=== PATIENT | male | born 2000 | race Caucasian/White ===

== ENCOUNTER 2023-09-24 16:16 | Emergency (ER) | payer OTHER, SELFPAY ==
[2023-09-24 16:21] VITALS: BP 175/124
--- NOTE | 2023-09-24 16:54 | ED.GENMED ---
History of Present Illness
General
Chief Complaint: Musculo-Skeletal Complaint
Source: patient and family
Time Seen by Provider: 09/24/23 16:42
Travel History
Have you had any contact with someone who has COVID-19?: No
Do you have any symptoms of coronavirus? Fever > 100 degrees, chills, cough, shortness of breath, sore throat, loss of taste or smell, muscle aches, or headache?: No
History of Present Illness
History of Present Illness:
23-year-old male with past medical history of asthma, anxiety/depression and cervical spine disc herniation presenting to the ER for evaluation after he was getting massage on his neck by his significant other when he developed sudden diffuse body
numbness for a few seconds which resolved given patient recently had an MRI which showed some small disc herniations within the cervical spine he was concerned that this was potentially made worse. He does note that he gets occasional paresthesias
to the left upper extremity and states he is still currently feeling that at time of my evaluation. Patient states he is not getting any chiropractic adjustments and denies any headaches, visual changes or any other concerns presently. Patient did
have an MRI last week which showed the disc herniations around C2-C3, C3-C4 and C4-C5. Patient has appointment with orthopedist scheduled for this coming Wednesday. He notes that this is overall been an ongoing issue for many years. Patient did not
take anything for symptoms prior to arrival.
Past History
Past History
ED Past Medical History: Asthma and Psychiatric (Depression/Anxiety)
ED Past Surgical History: Tonsilectomy
Social History
Tobacco: Non-smoker
Alcohol: None
Drug: None
Personal: Single
Living: with family
Review of Systems
Review of Systems
All Other Systems: ROS reviewed and negative except as documented in HPI and ROS
Phy Exam
Physical Exam
Physical Exam:
GENERAL: Alert , very anxious
EYE: conjunctiva clear, pupils 3 mm bilateral
Head: Normocephalic atraumatic
NECK: Supple, mild tenderness/spasm in the left paracervical region
ENT: mmm. TMs normal
LUNGS: no acute respiratory distress
NEUROLOGICAL: Alert and oriented, moves all extremities, 5 out of 5 strength bilateral upper and lower extremities, ambulates with steady gait. Biceps, triceps and brachioradialis deep tendon reflexes 2+ bilateral upper extremities
SKIN: Warm and dry, skin intact.
MUSCULOSKELETAL: well perfused.
PSYCH: Normal and appropriate interaction.
Scores
Heart Failure Risk
Heart Failure Risk Score: Not Applicable
Heart Score for Chest Pain Patients
STEMI patient?: Not applicable
Withdrawal Assessment of Alcohol
Withdrawal Assessment Completed?: Not applicable
Course
Orders/Labs/Results
Orders:
Orders
09/24/23 16:56
Cervical Collar- Treatment ONCE
Collar Type: Soft Cervical Collar
Vital Signs
Initial and Last Documented VS:
Initial Vital Signs
Temp Pulse Resp BP Pulse Ox
98.3 F 113 22 175/124 98
09/24/23 16:21 09/24/23 16:21 09/24/23 16:21 09/24/23 16:21 09/24/23 16:21
Last Documented Vital Signs
Temp Pulse Resp BP Pulse Ox
98.3 F 113 22 175/124 98
09/24/23 16:21 09/24/23 16:21 09/24/23 16:21 09/24/23 16:21 09/24/23 16:21
MDM/Problems Addressed
Differential Diagnosis Includes:
Cervicalgia, muscle spasm, disc herniation, no concern for dissection or acute spinal cord impingement
MDM/Problems Addressed:
23-year-old male present emergency department for evaluation of exacerbation of his already known disc herniation within the cervical spine. Patient without any acute neurologic findings on exam. Overall I suspect symptoms are likely related to
his already known disc herniations. Will trial a course of a Medrol dose pack as well as a muscle relaxant. Patient requesting a soft cervical collar for comfort. He is otherwise stable for discharge home to follow-up orthopedist as he has
scheduled.
*Pulse Oximetry
Patient hypoxic: no
*Critical Care Note
Total Time (30-74mins, 75-104mins- exclusive of procedures): Not Applicable
Data Reviewed
Review of Other/Old Records Reveals: Radiology Studies (MRI report from earlier last week showing c-spine disc herniations)
ED Attending Note
-
Portions of this chart may have been created with voice recognition software.� Occasional wrong word or��sound alike� substitutions may have occurred due to the inherent limitations of voice recognition software.
Discharge Plan
Departure
Patient Disposition: Home (Routine Discharge)
Date of Disposition: 09/24/23
Time of Disposition: 16:54
Patient with high blood pressure during this ER visit?: Yes
Discharge Problem:
Cervicalgia, Radiculopathy of cervical region
Instructions: Herniated Disc (DC)
Prescriptions:
New
methylprednisolone [Medrol (Presley)] 4 mg tablets,dose pack
4 mg PO DIRECTED Qty: 21 0RF
baclofen 10 mg tablet
10 mg PO BID Qty: 10 0RF
No Action
clindamycin HCl 300 mg capsule
300 mg PO QID 7 Days Qty: 28 0RF
naproxen 500 mg tablet
500 mg PO BID 7 Days Qty: 14 0RF
Stand Alone Forms: Return to Work
Interventions
Interventions:
*Risk Screen - Suicide Last Done: 09/24/23 16:21
*General Assessment Last Done: 09/24/23 16:21
*Neglect/Abuse Screening Last Done: 09/24/23 16:21
ED- Fall Risk Assessment Last Done: 09/24/23 17:12
*ED COVID-19 Vaccine History Last Done: 09/24/23 17:12
*Nursing Disposition Last Done: 09/24/23 17:12
ED-Musculoskeletal Assessment Last Done: 09/24/23 17:11
Discharge Date and Time
Discharge Date/Time: 09/24/23 17:12
Print Language: HEBREW
== END 2023-09-24 17:12 | disposition home or self-care (01) ==
LOC: EMR 16:16
PROVIDERS: EMERGENCY PHYSICIAN Student in an Organized Health Care Education/Training Program; FAMILY PHYSICIAN Family Medicine
DX: M54.12 Radiculopathy, cervical region (principal); R03.0 Elevated blood-pressure reading, without diagnosis of hypertension; J45.909 Unspecified asthma, uncomplicated; F41.9 Anxiety disorder, unspecified; F32.A Depression, unspecified
CPT/HCPCS: 99283

== ENCOUNTER 2024-07-04 23:56 | Emergency (ER) | payer OTHER, SELFPAY ==
[2024-07-04 23:59] VITALS: BP 150/92
--- NOTE | 2024-07-05 00:24 | ED.GENMED ---
History of Present Illness
General
Chief Complaint: Crisis Evaluation
Source: patient
Time Seen by Provider: 07/05/24 00:23
Nursing documentation reviewed up to this point in time: agreed with
History of Present Illness
History of Present Illness:
24-year-old male presents to the emergency department with possible SI. Patient has been drinking alcohol this evening. He states that he occasionally drinks to deal with chronic neck pain. Tonight his dad that he got into an argument over
patient's chronic neck pain. Patient stated that that told him that he was 'overreacting' to the neck pain. Patient states that the pain has gotten so severe that he is thought of hurting himself. Tonight he thought of hurting himself but did not
have a specific plan. Patient stated that he just wanted to be alone and go to sleep but dad kept texting him throughout the night. Patient stated that he would have gone to bed uneventfully if no one had intervened. He did not plan on hurting
himself tonight. Patient states that when his pain is severe he does have thoughts of hurting himself. He has never acted on it.
Past History
Past History
ED Past Medical History: Asthma and Psychiatric (Depression/Anxiety)
ED Past Surgical History: Tonsilectomy
Social History
Tobacco: Non-smoker
Alcohol: None
Drug: None
Personal: Single
Living: with family
Review of Systems
Review of Systems
All Other Systems: Not applicable
Constitutional: Reports no symptoms
EENT: Reports no symptoms
Respiratory: Reports no symptoms
Cardiac: Reports no symptoms
ABD/GI: Reports no symptoms
: Reports no symptoms
Musculoskeletal: Reports no symptoms
Skin: Reports no symptoms
Neurological: Reports no symptoms
Endocrine: Reports no symptoms
Hematologic/Lymphatic: Reports no symptoms
Psychiatric: Reports no symptoms
Phy Exam
General Physical Exam
General Presentation: well appearing and no apparent distress
General Skin: warm and dry
General Habitus: normal
General Mental: alert
General Hydration: appears well hydrated
ENT Exam
ENT Exam: EOMI, pharynx normal, neck supple and normocephalic
Eye Exam
Eye Exam: PERRL, cornea clear and conjunctiva normal
Cardiovascular Exam
Cardiovascular Exam: regular rate/rhythm, no edema, no murmur and normal peripheral pulses
Pulmonary Exam
Pulmonary Exam: lungs clear, no respiratory distress, no rales, no crackles, no rhonchi, no stridor, no wheezing and no cough
Gastrointestinal Exam
Gastrointestinal Exam: normal bowel sounds, non tender, soft, no organomegaly, no pulsatile mass and non distended
Neurological Exam
Neurological Exam: alert, oriented x3, no motor deficits and speech normal
Musculoskeletal Exam
Musculoskeletal Exam: full ROM and no edema
Skin Exam
Skin Exam: normal color, warm/dry, no rash and no petechia
Psychiatric Exam
Psychiatric Exam: normal mood/affect, anxious, depressed and suicidal (?)
Course
Orders/Labs/Results
Orders:
Orders
07/05/24 00:05
Crisis Consult Urgent
Reason for Consult: SUICIDAL STATEMENT IN ARGUMENT WITH DAD
07/05/24 00:33
Alcohol Urgent
Urine Drug Abuse Screen Urgent
Date Specimen was Collected: 07/05/24
Time Specimen was Collected: 00:32
Vital Signs
Initial and Last Documented VS:
Initial Vital Signs
Temp Pulse Resp BP Pulse Ox
98.1 F 124 20 150/92 95
07/04/24 23:59 07/04/24 23:59 07/04/24 23:59 07/04/24 23:59 07/04/24 23:59
Last Documented Vital Signs
Temp Pulse Resp BP Pulse Ox
98.1 F 124 20 150/92 95
07/04/24 23:59 07/04/24 23:59 07/04/24 23:59 07/04/24 23:59 07/04/24 23:59
*Critical Care Note
Total Time (30-74mins, 75-104mins- exclusive of procedures): Not Applicable
Update Note
Update Note:
Patient was seen by crisis. He denied suicidal or homicidal ideation, intent, or plan. Mom is present in the room. She states that she is okay with taking him home. She does not feel he is a danger to himself or others. Patient does have
outpatient resources and refused new ones. Patient being discharged in its stable condition.
ED Attending Note
-
Portions of this chart may have been created with voice recognition software.� Occasional wrong word or��sound alike� substitutions may have occurred due to the inherent limitations of voice recognition software.
Discharge Plan
Departure
Disposition: Home (Routine Discharge)
Date of Disposition: 07/05/24
Time of Disposition: 04:23
Patient with high blood pressure during this ER visit?: Yes
Condition: Good
Discharge Problem:
Alcohol intoxication, Depression
Instructions: Depression, Adult (DC), Anxiety, Adult (DC), BLOOD PRESSURE, Drug and Alcohol Abuse Information
Prescriptions:
No Action
clindamycin HCl 300 mg capsule
300 mg PO QID 7 Days Qty: 28 0RF
naproxen 500 mg tablet
500 mg PO BID 7 Days Qty: 14 0RF
methylprednisolone [Medrol (Presley)] 4 mg tablets,dose pack
4 mg PO DIRECTED Qty: 21 0RF
baclofen 10 mg tablet
10 mg PO BID Qty: 10 0RF
Referrals:
[facility] [Active] -
UNKNOWN - PT DOES,NOT KNOW [Family Provider] -
Additional Instructions:
It was a pleasure meeting you and taking part in your care. We hope for your continued healing and wellness.
Please read discharge instructions in their entirety. However, they are for general education and may not describe your exact diagnosis at discharge. Information on your ER visit and medical conditions were discussed with you along with appropriate
follow up information...
If indicated, please take your medications as instructed and indicated on discharge paperwork.
Please schedule a follow up appointment as directed. Call to schedule an appointment
Please return to the emergency department with ANY change in, persisting, or worsening of symptoms. If any of your symptoms do not improve, or persist, or become more severe within 6-12 hours, please return to the emergency department for further
care.
Please return to the emergency department if you develop a headache, neck pain/stiffness, fever greater than 100.4F, chest pain, shortness of breath, persistent nausea, vomiting, slurred speech, difficulty walking, numbness/tingling, weakness, signs
of infection or any other symptoms that are worrisome to you.
If you have any questions or concerns please do not hesitate to call the Hospital at or E-mail me directly at [email or web address]
Interventions
Interventions:
*Risk Screen - Suicide Last Done: 07/04/24 23:59
*General Assessment Last Done: 07/05/24 00:34
*Neglect/Abuse Screening Last Done: 07/04/24 23:59
*ED- Fall Risk Assessment Last Done: 07/05/24 00:34
*ED COVID-19 Vaccine History Last Done: 07/05/24 00:34
ED-Psychological Assessment Last Done: 07/05/24 00:50
Discharge Date and Time
Discharge Date/Time: 07/05/24 03:15
Print Language: ALBANIAN
[2024-07-05 00:34] VITALS: BMI 27.3
[2024-07-05 00:56] LABS: Amphetamines Negative (Negative); Barbiturates Negative (Negative); Benzodiazepines Negative (Negative); Buprenorphine Negative (Negative); Cocaine Negative (Negative); Marijuana Negative (Negative); Methadone Negative (Negative); Methamphetamines Negative (Negative); Opiates Negative (Negative); Phencyclidine Negative (Negative); Tricyclic Antidepressants Negative (Negative)
[2024-07-05 03:08] LABS: Alcohol 346 mg/dl
--- NOTE | 2024-07-05 04:23 | DOWNTIME ---
There was a [employer] Downtime on 07/05/2024 from 0100 to 07/06/2023 at 0420 . Downtime documentation of patient's care, including medication administrations, has been reconciled in the electronic record per guidelines. Refer to the
patient's paper chart under the miscellaneous tab to see printed paper medication records and downtime forms.
== END 2024-07-05 03:15 | disposition home or self-care (01) ==
LOC: EMR 23:56
PROVIDERS: EMERGENCY PHYSICIAN Student in an Organized Health Care Education/Training Program
DX: F10.129 Alcohol abuse with intoxication, unspecified (principal); R45.851 Suicidal ideations; F32.A Depression, unspecified; R03.0 Elevated blood-pressure reading, without diagnosis of hypertension; F41.9 Anxiety disorder, unspecified; J45.909 Unspecified asthma, uncomplicated; M54.2 Cervicalgia; G89.29 Other chronic pain; Z88.5 Allergy status to narcotic agent; Z88.0 Allergy status to penicillin
CPT/HCPCS: 99284; 80306; 82077

== ENCOUNTER 2024-07-07 20:07 | Emergency (ER) | payer OTHER, SELFPAY ==
[2024-07-07 20:09] VITALS: BP 155/88
--- NOTE | 2024-07-07 20:17 | ED.GENMED ---
History of Present Illness
General
Chief Complaint: Abdominal Symptoms
Source: patient
Exam Limitations: none
Time Seen by Provider: 07/07/24 20:16
Nursing documentation reviewed up to this point in time: agreed with
History of Present Illness
History of Present Illness:
24 yo male w h/o asthma, chronic neck pain, anxiety/depression presents for nausea/vomiting, had two episodes diarrhea today. He and girlfriend at bedside think it's because he is so anxious, he hasn't slept in 3 days, his stomach is burning, all
due to stress at home with his parents with whom he lives. They both agree, this is something that will pass and can be worked out.
Pt denies using any recreational drugs, he does vape, does not drink alcohol.
He is retching and vomiting large amount liquid emesis during initial exam.
Past History
Past History
ED Past Medical History: Asthma and Psychiatric (Depression/Anxiety, takes Desvenlafaxine (Pristiq))
ED Past Surgical History: Tonsilectomy
Social History
Tobacco: Non-smoker
Alcohol: None
Drug: None
Personal: Single
Living: with family
Review of Systems
Review of Systems
Allergies reviewed?: Yes
All Other Systems: ROS reviewed and negative except as documented in HPI and ROS
Constitutional: Reports fatigue; Denies fever
EENT: Denies sore throat
Respiratory: Denies trouble breathing
Cardiac: Denies chest pain
ABD/GI: Reports nausea, vomiting and diarrhea; Denies abdominal pain, bloody stools or black stools
: Denies dysuria, frequency or difficulty voiding
Musculoskeletal: Reports no symptoms
Skin: Reports no symptoms
Neurological: Reports no symptoms
Psychiatric: Reports depression and anxiety
Phy Exam
Physical Exam
Physical Exam:
GENERAL: Actively vomiting. A&Ox3.
CONSTITUTIONAL: Afebrile.
EYES: clear, conjunctivae normal
ENMT: moist mucus membranes, Pharynx nl
RESPIRATORY: Regular respirations, nonlabored, lungs clear.
CARDIOVASCULAR: Regular rate and rhythm, no murmurs, no rubs.
GI: Soft, nontender, normal BS
MUSCULOSKELETAL: Moves with ease. Well perfused.
SKIN: Warm, dry, pink
PSYCH: Anxious mood and affect. Well kept, interactive and appropriate
NEUROLOGIC: Awake, alert and oriented. No focal neurological deficits
Course
Orders/Labs/Results
Orders:
Orders
07/07/24 20:24
0.9% Sodium Chloride 1000 ml [Nss] 1,000 ml IV BOLUS
Ondansetron Injectable [Zofran] 4 mg IV NOW STA
07/07/24 20:33
Alcohol Urgent
Complete Blood Count/With Diff Urgent
Comprehensive Metabolic Panel Urgent
07/07/24 21:08
Pantoprazole [Protonix IV] 80 mg IV NOW STA
07/07/24 21:24
Mag Hydrox/Al Hydrox/Simeth [Maalox] 30 ml Phenobarb/Hyoscy/Atropine/Scop [] 10 ml Viscous Lidocaine 2% [Xylocaine Viscous Cup] 10 ml PO NOW
07/07/24 22:02
Mag Hydrox/Al Hydrox/Simeth [Maalox] 30 ml .ROUTE .STK-MED ONE
Phenobarb/Hyoscy/Atropine/Scop [] 10 ml .ROUTE .STK-MED ONE
07/07/24 22:06
Viscous Lidocaine 2% [Xylocaine Viscous Cup] 15 ml .ROUTE .STK-MED ONE
07/07/24 22:10
Lorazepam [Ativan] 0.5 mg IV NOW STA
07/07/24 22:11
Lorazepam [Ativan] 2 mg .ROUTE .STK-MED ONE
07/07/24 22:12
Add On- LAB Urgent
Tests Added?: Alcohol level
07/07/24 22:39
Ondansetron Injectable [Zofran] 4 mg IV NOW STA
Abnormal Lab Results
07/07/24
20:33
WBC 11.0 H 10^3/uL
(4.8-10.8)
MCH 32.2 H pg
(27.0-31.0)
Abs Immat Gran (auto) 0.1 H 10^3/uL
(0-0.05)
Absolute Neuts (auto) 7.1 H 10^3/uL
(1.4-6.5)
Absolute Monos (auto) 0.9 H 10^3/uL
(0.1-0.6)
Sodium 134 L mmol/L
(135-145)
Chloride 94 L mmol/L
(98-107)
Glucose 130 H mg/dl
(70-99)
AST 70 H U/L
(17-59)
Albumin 5.5 H g/dl
(3.5-5.0)
07/07/24 20:33
07/07/24 20:33
Vital Signs
Initial and Last Documented VS:
Initial Vital Signs
Temp Pulse Resp BP Pulse Ox
98.1 F 124 20 155/88 99
07/07/24 20:09 07/07/24 20:09 07/07/24 20:09 07/07/24 20:09 07/07/24 20:09
Last Documented Vital Signs
Temp Pulse Resp BP Pulse Ox
98.1 F 109 20 171/91 98
07/07/24 20:09 07/07/24 21:25 07/07/24 20:09 07/07/24 21:25 07/07/24 21:25
MDM/Problems Addressed
Differential Diagnosis Includes:
Gastritis, GERD, norovirus/viral gastroenteritis, stress
MDM/Problems Addressed:
24 yo male w h/o asthma, chronic neck pain, anxiety/depression presents for nausea/vomiting, had two episodes diarrhea today. He and girlfriend at bedside think it's because he is so anxious, he hasn't slept in 3 days, his stomach is burning, all
due to stress at home with his parents with whom he lives. They both agree, this is something that will pass and can be worked out.
Pt denies using any recreational drugs, he does vape, does not drink alcohol.
Afebrile
Appears anxious, He is retching and vomiting large amount liquid emesis during initial exam.
9:25 PM:
After IV fluids and Zofran patient no longer vomiting, he is complaining of burning in his esophagus and stomach. GI cocktail ordered. Protonix IV ordered.
His mom arrives and states although he typically drinks socially, 2 days ago he drank more vodka than usual due to stress
Pt states due to inability to sleep past 2 nights, he drank about a pint of vodka
10:10 p.m.
Pt vomiting and retching after GI cocktail
Ativan 0.5 mg IV given Zofran IV readministered
11:30 p.m.
Pt feeling much better, tolerating po fluids, is comfortable going home
Plan: Rx for Protonix and Zofran sent to his pharmacy as well as 2 doses of
BP 158/86
Patient ambulated out with normal gait at discharge
*Critical Care Note
Total Time (30-74mins, 75-104mins- exclusive of procedures): Not Applicable
ED Attending Note
-
Portions of this chart may have been created with voice recognition software.� Occasional wrong word or��sound alike� substitutions may have occurred due to the inherent limitations of voice recognition software.
Discharge Plan
Departure
Patient Disposition: Home (Routine Discharge)
Date of Disposition: 07/07/24
Time of Disposition: 23:52
Patient with high blood pressure during this ER visit?: No
Condition: Good
Discharge Problem:
Gastritis, Anxiety
Instructions: Clear Liquid Diet, Nausea and Vomiting, Adult (DC), Coping with stress, Anxiety in adults - ED discharge instructions
Prescriptions:
New
pantoprazole [Protonix] 40 mg tablet,delayed release (DR/EC)
40 mg PO DAILY Qty: 30 0RF
ondansetron 4 mg tablet,disintegrating
4 mg PO Q8H PRN (Reason: nausea and vomiting) 1 Days Qty: 7 0RF
lorazepam [Ativan] 0.5 mg tablet
0.5 mg PO DAILY MDD anxiety PRN (Reason: anxiety) Qty: 3 0RF
No Action
clindamycin HCl 300 mg capsule
300 mg PO QID 7 Days Qty: 28 0RF
naproxen 500 mg tablet
500 mg PO BID 7 Days Qty: 14 0RF
methylprednisolone [Medrol (Presley)] 4 mg tablets,dose pack
4 mg PO DIRECTED Qty: 21 0RF
baclofen 10 mg tablet
10 mg PO BID Qty: 10 0RF
Referrals:
Kavita Handy MD [Active] - Next open appointment
Rigoberto Phillips DO [Family Provider] - Call in 1-3 days for appt
Activity Restrictions/Additional Instructions:
As we discussed, if you feel like you need something for anxiety please discuss with your family doctor I sent a prescription
For Ativan, a few doses to use over the weekend if needed.
I sent a prescription to your pharmacy for Zofran to use as needed for nausea and vomiting
I sent a prescription to your pharmacy for Protonix to use for your stomach burning pain
I recommended a GI doctor to follow-up with if your stomach continues to bother you
Interventions
Interventions:
*Risk Screen - Suicide Last Done: 07/07/24 20:34
*General Assessment Last Done: 07/07/24 20:09
*Neglect/Abuse Screening Last Done: 07/07/24 20:34
*ED- Fall Risk Assessment Last Done: 07/07/24 20:34
*ED COVID-19 Vaccine History Last Done: 07/07/24 20:34
*Nursing Disposition Last Done: 07/08/24 00:46
XE-Gxlukv-Dtzpkgkuwh Assessment Last Done: 07/07/24 20:45
Discharge Date and Time
Discharge Date/Time: 07/08/24 00:46
Print Language: MAURITIAN
[2024-07-07] MEDS: ZOFRAN 4 MG IV ×2 (20:33→22:45)
[2024-07-07] MEDS: NSS 1000 IV (20:34)
[2024-07-07 20:42] LABS: % Basophils 1.4 % (0-2); % Eosinophils 0.5 % (0-6); % Immature Granulocytes 0.5 % (0-0.5); % Lymphocytes 24.9 % (20.5-51.1); % Monocytes 7.7 % (1.7-9.3); Absolute Basophils 0.2 10^3/uL (0-0.2); Absolute Eosinophils 0.1 10^3/uL (0-0.7); Absolute Immature Granulocytes 0.1 10^3/uL (0-0.05); Absolute Lymphocytes 2.7 10^3/uL (1.2-3.4); Absolute Monocytes 0.9 10^3/uL (0.1-0.6); Absolute Neutrophils 7.1 10^3/uL (1.4-6.5); Hematocrit 45.4 % (39.0-52.0); Hemoglobin 15.9 g/dL (13.0-18.0); Mean Corpuscular Hgb 32.2 pg (27.0-31.0); Mean Corpuscular Volume 91.9 fL (80.0-94.0); Mean Platelet Volume 8.6 fL (7.4-10.4); Nucleated Red Blood Cells % 0 % (-); Platelet Count 308 10^3/uL (130-400); Red Blood Cell Count 4.94 10^6/uL (4.70-6.10); Red Cell Dist. Width 12.9 % (11.5-14.5)
[2024-07-07 21:06] LABS: ALT (SGPT) 27 U/L (0-50); AST (SGOT) 70 U/L (17-59); Albumin 5.5 g/dl (3.5-5.0); Alkaline Phosphatase 74 U/L (38-126); Blood Urea Nitrogen 15 mg/dl (9-20); Calcium 9.9 mg/dl (8.4-10.2); Carbon Dioxide 24 mmol/L (22-30); Chloride 94 mmol/L (98-107); Glucose 130 mg/dl (70-99); Sodium 134 mmol/L (135-145); Total Bilirubin 1.3 mg/dl (0.2-1.3); Total Protein 7.8 g/dl (6.3-8.2); eGFR > 60.00
[2024-07-07] MEDS: PROTONIX IV 80 MG IV (21:22)
[2024-07-07 21:25] VITALS: BP 171/91
--- NOTE | 2024-07-07 21:30 | EDRN ---
SYLVESTER Solomon at bedside re-assessing patient, mom and girlfriend at bedside as well, patient a little anxious
[2024-07-07] MEDS: MAALOX 50 PO (22:07)
[2024-07-07] MEDS: ATIVAN 0.5 MG IV (22:12)
--- NOTE | 2024-07-07 22:18 | EDRN ---
Patient very anxious and throwing up, SYLVESTER hayes aware, meds ordered and given.
[2024-07-07 22:50] LABS: Alcohol 29 mg/dl
== END 2024-07-08 00:46 | disposition home or self-care (01) ==
LOC: EMR 20:07
PROVIDERS: Registered Nurse; EMERGENCY PHYSICIAN Emergency Medicine; FAMILY PHYSICIAN Family Medicine
DX: K29.70 Gastritis, unspecified, without bleeding (principal); F41.9 Anxiety disorder, unspecified; J45.909 Unspecified asthma, uncomplicated; R19.7 Diarrhea, unspecified; G89.29 Other chronic pain
CPT/HCPCS: 96374; 96375; 96376; 96361; 99284; 80053; 82077; 85025

== ENCOUNTER 2024-09-06 17:49 | Emergency (ER) | payer OTHER, SELFPAY ==
[2024-09-06 17:50] VITALS: BMI 27.4
[2024-09-06 17:53] VITALS: BP 140/98
--- NOTE | 2024-09-06 18:03 | ED.GENMED ---
History of Present Illness
<Yesica Burch PA-C - Last Filed: 09/06/24 20:59>
General
Chief Complaint: Head Injury
Source: patient
Exam Limitations: none
Time Seen by Provider: 09/06/24 17:57
Nursing documentation reviewed up to this point in time: agreed with
History of Present Illness
History of Present Illness:
Patient is a 24-year-old male with history depression who presents to the emergency department after head injury. Patient states that yesterday he slipped and fell on the stairs at home striking the back of his head on cement. He thinks he may
have lost consciousness however no one witnessed this fall. He contacted his mom who came home from work.
He states that yesterday he had a severe pressure type sensation in his head and felt very tired. Today�patient reports severe headache, dizziness, ataxia, confusion, and visual changes.
Mom states that patient seems very confused and did not seem to know where he was earlier today (they were at home).
Patient denies any nausea or vomiting. Patient denies any back pain, numbness/tingling in lower extremities, or weakness in lower extremities. No saddle paresthesias or bowel/bladder incontinence
He does note that he has only urinated once since yesterday afternoon although denies any abdominal pain.
Past History
<Yesica Burch PA-C - Last Filed: 09/06/24 20:59>
Past History
ED Past Medical History: Asthma and Psychiatric (Depression/Anxiety, takes Desvenlafaxine (Pristiq))
ED Past Surgical History: Tonsilectomy
Social History
Tobacco: Non-smoker
Alcohol: None
Drug: None
Personal: Single
Living: with family
Review of Systems
<Yesica Burch PA-C - Last Filed: 09/06/24 20:59>
Review of Systems
Allergies reviewed?: Yes
All Other Systems: ROS reviewed and negative except as documented in HPI and ROS
Phy Exam
<Yesica Burch PA-C - Last Filed: 09/06/24 20:59>
Physical Exam
Physical Exam:
Vitals: Hypertensive, tachycardic although somewhat improved by assessment. Afebrile
General: Patient is laying in bed with eyes closed.
Skin: Warm and dry, no rashes or lesions
Head: Normocephalic, atraumatic
Eyes: Sclera nonicteric. EOMs intact. No nystagmus.
Throat: Protecting airway
Neck: Normal ROM, no cervical spine tenderness, no meningismus
Cardiac: Regular rate and rhythm, no murmurs.
Pulm: Normal respiratory effort, no wheezes, rales, rhonchi heard on exam
.
Abdomen: Abdomen soft and nontender.
Extremities: No evidence of cyanosis or edema
Neuro: AAOx3. CN II-XII grossly intact on examination. No facial droop or asymmetry. Strength 5/5 in upper and lower extremities with normal sensation. Normal finger-nose's. Somewhat unsteady gait
Psychiatric: Normal affect.
Course
<Yesica Burch PA-C - Last Filed: 09/06/24 20:59>
Orders/Labs/Results
Orders:
Orders
09/06/24 18:28
CT Head W/o Iv Contrast Urgent
Comment:
Reason For Exam: fall, head strike
Cervical Spine wo Contrast CT [CT Cervical Spine W/o Iv Contr] Urgent
Comment:
Reason For Exam: head strike
Acetaminophen [Tylenol] 650 mg PO NOW STA
09/06/24 18:33
Acetaminophen [Tylenol] 650 mg .ROUTE .STK-MED ONE
09/06/24 20:13
Bladder Scan- Treatment ONCE
Vital Signs
Initial and Last Documented VS:
Initial Vital Signs
Temp Pulse Resp BP Pulse Ox
98.0 F 120 18 140/98 100
09/06/24 17:53 09/06/24 17:53 09/06/24 17:53 09/06/24 17:53 09/06/24 17:53
Last Documented Vital Signs
Temp Pulse Resp BP Pulse Ox
98.0 F 89 16 128/84 99
09/06/24 17:53 09/06/24 20:00 09/06/24 20:00 09/06/24 20:00 09/06/24 20:00
<Lenny Gerardo MD - Last Filed: 09/07/24 01:07>
Orders/Labs/Results
Orders:
Orders
09/06/24 18:28
CT Head W/o Iv Contrast Urgent
Comment:
Reason For Exam: fall, head strike
Cervical Spine wo Contrast CT [CT Cervical Spine W/o Iv Contr] Urgent
Comment:
Reason For Exam: head strike
Acetaminophen [Tylenol] 650 mg PO NOW STA
09/06/24 18:33
Acetaminophen [Tylenol] 650 mg .ROUTE .STK-MED ONE
09/06/24 20:13
Bladder Scan- Treatment ONCE
Vital Signs
Initial and Last Documented VS:
Initial Vital Signs
Temp Pulse Resp BP Pulse Ox
98.0 F 120 18 140/98 100
09/06/24 17:53 09/06/24 17:53 09/06/24 17:53 09/06/24 17:53 09/06/24 17:53
Last Documented Vital Signs
Temp Pulse Resp BP Pulse Ox
98.0 F 89 16 128/84 99
09/06/24 17:53 09/06/24 20:00 09/06/24 20:00 09/06/24 20:00 09/06/24 20:00
<Yesica Burch PA-C - Last Filed: 09/06/24 20:59>
MDM/Problems Addressed
Differential Diagnosis Includes:
Not limited to: Concussion, subdural hematoma, epidural hematoma, cervical spine fracture, EXTR
MDM/Problems Addressed:
24-year-old male with significant fatigue, headache, altered mental status after mechanical fall yesterday with associated head strike. Fall was unwitnessed although patient does report brief LOC. He also reports some difficulty with depth
perception and dizziness. He has had no episodes of vomiting. Patient tachycardic and hypertensive on arrival although somewhat improved by my assessment. Physical exam as above. Patient alert and oriented x 3 with no focal neurologic deficits
on exam. No evidence of head or neck trauma. Patient is moving all extremities and ambulatory although a little unsteady on his feet. Given unwitnessed nature of fall with history of possible LOC changes in mentation today�will obtain CT
head/cervical spine to rule out acute intracranial traumatic injury. Tylenol for pain.
Update: CT head/cervical spine without evidence of acute traumatic injury. On reassessment�patient states he is feeling slightly better than arrival to the emergency department. He remains alert and oriented. He is ambulatory. Overall impression
is likely concussion. He lives at home with his mom who states she will monitor him closely. Advise rest, hydration, Tylenol/Motrin for pain. Very strict return precautions discussed. He will follow-up with primary care. Patient seen with
attending physician.
Chronic conditions affecting care:
N/A
Acute Exacerbation and/or Progression of Chronic Illness:
N/A
<Yesica Burch PA-C - Last Filed: 09/06/24 20:59>
*Radiology
Radiology exam reviewed: preliminary read by ED provider (Head CT reviewed by me-no acute intracranial abnormality) and radiology read reviewed
*Pulse Oximetry
Patient hypoxic: no
*EKG
Interpreted by ED Provider?: NA
*Cake Icer And Packer Interpretation
Rate: Cake Icer And Packer- N/A
*Critical Care Note
Total Time (30-74mins, 75-104mins- exclusive of procedures): Not Applicable
ED Attending Note
<Yesica Burch PA-C - Last Filed: 09/06/24 20:59>
-
Portions of this chart may have been created with voice recognition software.� Occasional wrong word or��sound alike� substitutions may have occurred due to the inherent limitations of voice recognition software.
<Lenny Gerardo MD - Last Filed: 09/07/24 01:07>
ED Attending Note
Patient seen and examined by attending physician: Yes
ED Attending Note:
Patient without any significant past medical history, presents to ED after losing balance and falling down 3 steps inside his house last night. Since then, patient has had persistent headache along with lightheaded sensation and 'confusion'.
Denies vomiting. Denies blurred vision. Denies loss of sensation or weakness. Denies neck pain. Denies any other injuries from the fall.
CT report reviewed and discussed with patient and family. History and exam consistent with likely postconcussive symptoms. No focal neurological deficit noted. Patient remains hemodynamically and neurovascularly intact during observation.
Patient is alert, awake, and oriented, with steady gait, at time of discharge, to the care of his family.
Discharge Plan
Departure
Patient Disposition: Home (Routine Discharge)
Date of Disposition: 09/06/24
Time of Disposition: 20:36
Patient with high blood pressure during this ER visit?: Yes
Condition: Good
Covid-19: Not Applicable
Discharge Problem:
Concussion
Instructions: Concussion, Adult (DC), BLOOD PRESSURE
Prescriptions:
No Action
clindamycin HCl 300 mg capsule
300 mg PO QID 7 Days Qty: 28 0RF
naproxen 500 mg tablet
500 mg PO BID 7 Days Qty: 14 0RF
methylprednisolone [Medrol (Presley)] 4 mg tablets,dose pack
4 mg PO DIRECTED Qty: 21 0RF
baclofen 10 mg tablet
10 mg PO BID Qty: 10 0RF
pantoprazole [Protonix] 40 mg tablet,delayed release (DR/EC)
40 mg PO DAILY Qty: 30 0RF
ondansetron 4 mg tablet,disintegrating
4 mg PO Q8H PRN (Reason: nausea and vomiting) 1 Days Qty: 7 0RF
lorazepam [Ativan] 0.5 mg tablet
0.5 mg PO DAILY MDD anxiety PRN (Reason: anxiety) Qty: 3 0RF
Referrals:
Rigoberto Phillips DO [Family Provider] - Follow up in 5-7 days
Stand Alone Forms: Return to Work
Activity Restrictions/Additional Instructions:
RETURN TO THE EMERGENCY DEPARTMENT WITH ANY SEVERE HEADACHE OR NECK PAIN, INTRACTABLE NAUSEA/VOMITING, PERSISTENT CONFUSION/CHANGES IN MENTAL STATUS, PERSISTENT DIZZINESS, CHANGES IN VISION, OR ANY OTHER CONCERNS
- As discussed�your CT imaging of your head and neck showed no acute traumatic injuries. You likely sustained a concussion.
- It is important to get plenty of rest. Stay well-hydrated. Limit screen time. You can take Tylenol and/or Motrin as needed for pain.
- Follow-up with primary care for further evaluation/management and to ensure that symptoms are improving
Monitor your symptoms closely and return to the emergency department with any acute worsening/new symptoms or any other concerns
Interventions
Interventions:
*Risk Screen - Suicide Last Done: 09/06/24 18:42
*General Assessment Last Done: 09/06/24 18:42
*Neglect/Abuse Screening Last Done: 09/06/24 18:42
*ED- Fall Risk Assessment Last Done: 09/06/24 18:42
*Nursing Disposition Last Done: 09/06/24 20:46
ED- Neurological Assessment Last Done: 09/06/24 18:42
ED-Skin Assessment Last Done: 09/06/24 18:42
Discharge Date and Time
Discharge Date/Time: 09/06/24 20:47
Print Language: TAJIK
[2024-09-06] MEDS: TYLENOL 650 MG PO (18:33)
[2024-09-06 19:21] VITALS: BP 133/87
[2024-09-06 20:00] VITALS: BP 128/84
== END 2024-09-06 20:47 | disposition home or self-care (01) ==
LOC: EMR 17:49
PROVIDERS: EMERGENCY PHYSICIAN Emergency Medicine; FAMILY PHYSICIAN Family Medicine
DX: S06.0X1A Concussion with loss of consciousness of 30 minutes or less, initial encounter (principal); G44.309 Post-traumatic headache, unspecified, not intractable; R41.0 Disorientation, unspecified; R27.0 Ataxia, unspecified; W10.9XXA Fall (on) (from) unspecified stairs and steps, initial encounter; Y92.008 Other place in unspecified non-institutional (private) residence as the place of occurrence of the external cause; R00.0 Tachycardia, unspecified; R03.0 Elevated blood-pressure reading, without diagnosis of hypertension; F32.A Depression, unspecified; F41.9 Anxiety disorder, unspecified; J45.909 Unspecified asthma, uncomplicated; Z79.899 Other long term (current) drug therapy; Z88.5 Allergy status to narcotic agent; Z88.0 Allergy status to penicillin
CPT/HCPCS: 99284; 51798; 70450; 72125

== ENCOUNTER 2024-09-29 21:48 | Emergency (ER) | payer OTHER, SELFPAY ==
[2024-09-29 21:50] VITALS: BP 125/70; BMI 27.9
--- NOTE | 2024-09-29 23:08 | ED.GENMED ---
History of Present Illness
General
Chief Complaint: Alcohol Problem
Source: patient
Exam Limitations: none
Time Seen by Provider: 09/29/24 22:38
Nursing documentation reviewed up to this point in time: agreed with
History of Present Illness
History of Present Illness:
Patient discharged home from [facility] yesterday, after receiving treatment for alcohol abuse, presents to ED after parents called 911, after verbal altercation. Patient does admit to having had alcohol tonight. Denies suicidal or homicidal
ideation. Patient otherwise has no complaints.
Past History
Past History
ED Past Medical History: Asthma and Psychiatric (Depression/Anxiety, takes Desvenlafaxine (Pristiq))
ED Past Surgical History: Tonsilectomy
Social History
Tobacco: Non-smoker
Alcohol: None
Drug: None
Personal: Single
Living: with family
Review of Systems
Review of Systems
Allergies reviewed?: Yes
All Other Systems: ROS reviewed and negative except as documented in HPI and ROS
Constitutional: Reports no symptoms; Denies fever
Respiratory: Reports no symptoms
Cardiac: Reports no symptoms
ABD/GI: Reports no symptoms
Musculoskeletal: Reports no symptoms
Skin: Reports no symptoms
Neurological: Reports no symptoms
Phy Exam
Physical Exam
Physical Exam:
Physical Exam
General: no apparent distress, not acutely ill. afebrile
Head: nc/at. eomi
Neck: supple. no meningeal signs.
Heart: s1/s2 regular rate and rhythm
Lungs: no acute respiratory distress. clear bilaterally
Abdomen: normal bowel sounds. not tender.
Neuro: alert and oriented x 3. no focal neurological deficits
Skin: no rash
Psychiatric: well kept. interactive and cooperative
Extremities: no edema. no calf tenderness.
Scores
Withdrawal Assessment of Alcohol
Withdrawal Assessment Completed?: Not applicable
Course
Vital Signs
Initial and Last Documented VS:
Initial Vital Signs
Temp Pulse Resp BP Pulse Ox
98.1 F 87 16 125/70 95
09/29/24 21:50 09/29/24 21:50 09/29/24 21:50 09/29/24 21:50 09/29/24 21:50
Last Documented Vital Signs
Temp Pulse Resp BP Pulse Ox
98.1 F 85 16 115/74 98
09/29/24 21:50 09/29/24 23:11 09/29/24 23:11 09/29/24 23:11 09/29/24 23:11
MDM/Problems Addressed
MDM/Problems Addressed:
Pt is alert/awake/oriented, and clinically mentally competent. Patient does not wish to receive any inpatient treatment at this time. Informed his parents that unless they wish to file 302 petition, patient has right to refuse any treatment. As
such, parents will come to ED and scrap picker the patient and take him home.
*Critical Care Note
Total Time (30-74mins, 75-104mins- exclusive of procedures): Not Applicable
ED Attending Note
-
Portions of this chart may have been created with voice recognition software.� Occasional wrong word or��sound alike� substitutions may have occurred due to the inherent limitations of voice recognition software.
Discharge Plan
Departure
Patient Disposition: Home (Routine Discharge)
Date of Disposition: 09/29/24
Time of Disposition: 23:08
Patient with high blood pressure during this ER visit?: Yes
Condition: Good
Discharge Problem:
Alcohol dependence
Instructions: Alcohol Use Disorder (DC)
Prescriptions:
No Action
clindamycin HCl 300 mg capsule
300 mg PO QID 7 Days Qty: 28 0RF
naproxen 500 mg tablet
500 mg PO BID 7 Days Qty: 14 0RF
methylprednisolone [Medrol (Presley)] 4 mg tablets,dose pack
4 mg PO DIRECTED Qty: 21 0RF
baclofen 10 mg tablet
10 mg PO BID Qty: 10 0RF
pantoprazole [Protonix] 40 mg tablet,delayed release (DR/EC)
40 mg PO DAILY Qty: 30 0RF
ondansetron 4 mg tablet,disintegrating
4 mg PO Q8H PRN (Reason: nausea and vomiting) 1 Days Qty: 7 0RF
lorazepam [Ativan] 0.5 mg tablet
0.5 mg PO DAILY MDD anxiety PRN (Reason: anxiety) Qty: 3 0RF
Referrals:
Rigoberto Phillips DO [Family Provider, Family Practice]
Activity Restrictions/Additional Instructions:
As discussed, please follow-up with your primary care physician, as well as outpatient rehab, for continual evaluation and treatment.
Interventions
Interventions:
*Risk Screen - Suicide Last Done: 09/29/24 21:50
*General Assessment Last Done: 09/29/24 21:50
*Neglect/Abuse Screening Last Done: 09/29/24 21:50
*ED- Fall Risk Assessment Last Done: 09/29/24 21:50
*ED COVID-19 Vaccine History Last Done: 09/29/24 23:11
*Nursing Disposition Last Done: 09/29/24 23:36
ED- Neurological Assessment Last Done: 09/29/24 23:11
ED-Psychological Assessment Last Done: 09/29/24 23:11
Discharge Date and Time
Discharge Date/Time: 09/29/24 23:37
Print Language: SAMI
[2024-09-29 23:11] VITALS: BP 115/74
== END 2024-09-29 23:37 | disposition home or self-care (01) ==
LOC: EMR 21:48
PROVIDERS: EMERGENCY PHYSICIAN Emergency Medicine; FAMILY PHYSICIAN Family Medicine
DX: F10.20 Alcohol dependence, uncomplicated (principal); R03.0 Elevated blood-pressure reading, without diagnosis of hypertension
CPT/HCPCS: 99283

== ENCOUNTER 2024-10-27 19:57 | Emergency (ER) | payer OTHER, SELFPAY ==
[2024-10-27 20:01] VITALS: BP 137/92
--- NOTE | 2024-10-27 21:11 | ED.GENMED ---
History of Present Illness
<Yanira Lopez ONLINE CONTENT DEVELOPER - Last Filed: 10/29/24 14:34>
General
Chief Complaint: Alcohol Problem
Source: family (Mother) and ambulance crew
Exam Limitations: none
Time Seen by Provider: 10/27/24 20:11
Nursing documentation reviewed up to this point in time: agreed with
History of Present Illness
History of Present Illness:
Patient to ED via EMS after mother found him unresponsive under bathroom sink. States he has known drinking issues, unsure how much he was drinking today. Denies any prior drug use. Brought to ED via EMS. Opens eyes to name. WIll shake head for
yes and no questions. Not speaking at this time. Mother alberto was admitted to [facility] from [facility] at the beginning of September. He was there for 1 week. He was here approx 2 weeks later. 302 was initiated but he then agreed to attend IOP at
[place] and 302 was dropped. Mother states he did not attend IOP and has been drinking heavily since. Mother states she spoke with Chelsie lucas. He has not been eating or showering, not caring for self.
Past History
<Yanira Lopez ONLINE CONTENT DEVELOPER - Last Filed: 10/29/24 14:34>
Past History
ED Past Medical History: Asthma and Psychiatric (Depression/Anxiety, takes Desvenlafaxine (Pristiq))
ED Past Surgical History: Tonsilectomy
Social History
Tobacco: Non-smoker
Alcohol: None
Drug: None
Personal: Single
Living: with family
Review of Systems
<Yanira Lopez ONLINE CONTENT DEVELOPER - Last Filed: 10/29/24 14:34>
Review of Systems
Allergies reviewed?: Yes
All Other Systems: ROS reviewed and negative except as documented in HPI and ROS
Constitutional: Reports not done (intoxicated)
Respiratory: Reports no symptoms
Cardiac: Reports no symptoms
Musculoskeletal: Reports no symptoms
Skin: Reports no symptoms
Neurological: Reports other (intoxicated)
Psychiatric: Reports other (intoxicated. According to mother he is not caring for self)
Phy Exam
<Yanira Lopez NP - Last Filed: 10/29/24 14:34>
General Physical Exam
General Presentation: other (intoxicated)
General age: appears stated age
General Skin: warm and dry
General Habitus: normal
General Mental: appears intoxicated
Neurological Exam
Neurological Exam: appears intoxicated and other (Intoxicated)
Musculoskeletal Exam
Musculoskeletal Exam: full ROM
Psychiatric Exam
Psychiatric Exam: other (intoxicated)
Scores
<Yanira Lopez NP - Last Filed: 10/29/24 14:34>
Withdrawal Assessment of Alcohol
Withdrawal Assessment Completed?: Not applicable
Course
<Yanira Lopez NP - Last Filed: 10/29/24 14:34>
Orders/Labs/Results
Orders:
Orders
10/27/24 20:57
CT Head W/o Iv Contrast Urgent
Comment:
Reason For Exam: found under sink unresponsive
Crisis Consult Urgent
Reason for Consult: depression
10/27/24 21:31
Alcohol Urgent
Complete Blood Count/With Diff Urgent
Comprehensive Metabolic Panel Urgent
Abnormal Lab Results
10/27/24
21:31
MCH 32.2 H pg
(27.0-31.0)
Creatinine 0.6 L mg/dL
(0.7-1.3)
Glucose 100 H mg/dl
(70-99)
Albumin 5.4 H g/dl
(3.5-5.0)
Alcohol, Quantitative 455 H* mg/dl
10/27/24 21:31
10/27/24 21:31
Vital Signs
Initial and Last Documented VS:
Initial Vital Signs
Temp Pulse Resp BP Pulse Ox
98.6 F 105 16 137/92 94
10/27/24 20:01 10/27/24 20:01 10/27/24 20:01 10/27/24 20:01 10/27/24 20:01
Last Documented Vital Signs
Temp Pulse Resp BP Pulse Ox
98.6 F 90 16 142/98 96
10/27/24 20:01 10/28/24 08:37 10/28/24 08:37 10/28/24 08:37 10/28/24 08:37
<Mark Foster, - Last Filed: 10/28/24 08:57>
Orders/Labs/Results
Orders:
Orders
10/27/24 20:57
CT Head W/o Iv Contrast Urgent
Comment:
Reason For Exam: found under sink unresponsive
Crisis Consult Urgent
Reason for Consult: depression
10/27/24 21:31
Alcohol Urgent
Complete Blood Count/With Diff Urgent
Comprehensive Metabolic Panel Urgent
Abnormal Lab Results
10/27/24
21:31
MCH 32.2 H pg
(27.0-31.0)
Creatinine 0.6 L mg/dL
(0.7-1.3)
Glucose 100 H mg/dl
(70-99)
Albumin 5.4 H g/dl
(3.5-5.0)
Alcohol, Quantitative 455 H* mg/dl
10/27/24 21:31
10/27/24 21:31
Vital Signs
Initial and Last Documented VS:
Initial Vital Signs
Temp Pulse Resp BP Pulse Ox
98.6 F 105 16 137/92 94
10/27/24 20:01 10/27/24 20:01 10/27/24 20:01 10/27/24 20:01 10/27/24 20:01
Last Documented Vital Signs
Temp Pulse Resp BP Pulse Ox
98.6 F 90 16 142/98 96
10/27/24 20:01 10/28/24 08:37 10/28/24 08:37 10/28/24 08:37 10/28/24 08:37
<Yanira Lopez, ONLINE CONTENT DEVELOPER - Last Filed: 10/29/24 14:34>
*Pulse Oximetry
SaO2: 94
Oxygen Mode of Delivery: Room air
Patient hypoxic: no
*Critical Care Note
Total Time (30-74mins, 75-104mins- exclusive of procedures): Not Applicable
<Yanira Lopez ONLINE CONTENT DEVELOPER - Last Filed: 10/29/24 14:34>
Update Note
Update Note:
Patient to ED from home after mother found him under bathroom sink. She is positive that he is drunk but was concerned that he hit his head/passed out in bathroom. Requesting crisis evaluatioln. CT head neg. Labs reviewed. Alcohol >400. Crisis
consult placed. Parents are not pusuing 302. Parents are not coming to pick him up. He is sleeping but arousable. In no distress.
<Mark Foster DO - Last Filed: 10/28/24 08:57>
Update Note
Update Note:
Patient to ED from home after mother found him under bathroom sink. She is positive that he is drunk but was concerned that he hit his head/passed out in bathroom. Requesting crisis evaluatioln. CT head neg. Labs reviewed. Alcohol >400. Crisis
consult placed. Parents are not pusuing 302. Parents are not coming to pick him up. He is sleeping but arousable. In no distress.
0849 patient reassessed and awake and alert. Feels a little dizzy but mentating normally. Neuroexam normal. CT negative and labs reviewed. Lengthy discussion with the patient regarding alcohol cessation. Offered several tips and offered
inpatient rehab. Patient states that a lot changed after a head injury. I did recommend outpatient follow-up with neurology or psychiatry. Patient admits he will go back to his intensive outpatient treatment. Does not want inpatient alcohol care
or inpatient psych care. Counseled on on the severe concerns regarding his alcohol level continued alcohol use at his age and the need to stop. He does understand that. Advised him to consider alternatives to drinking such as exercise or spending
time with friends and family. He does agree. He is going to call his mom likely to take him home
ED Attending Note
<Yanira Lopez NP - Last Filed: 10/29/24 14:34>
-
Portions of this chart may have been created with voice recognition software.� Occasional wrong word or��sound alike� substitutions may have occurred due to the inherent limitations of voice recognition software.
Discharge Plan
Departure
Patient Disposition: Home (Routine Discharge)
Date of Disposition: 10/28/24
Time of Disposition: 08:55
Patient with high blood pressure during this ER visit?: No
Discharge Problem:
Acute alcohol intoxication, Alcohol abuse
Instructions: Alcohol Use Disorder (DC), Alcohol Poisoning (DC)
Prescriptions:
New
lorazepam 0.5 mg tablet
0.5 mg PO TID PRN (Reason: anxiety) Qty: 9 0RF
No Action
clindamycin HCl 300 mg capsule
300 mg PO QID 7 Days Qty: 28 0RF
naproxen 500 mg tablet
500 mg PO BID 7 Days Qty: 14 0RF
methylprednisolone [Medrol (Presley)] 4 mg tablets,dose pack
4 mg PO DIRECTED Qty: 21 0RF
baclofen 10 mg tablet
10 mg PO BID Qty: 10 0RF
pantoprazole [Protonix] 40 mg tablet,delayed release (DR/EC)
40 mg PO DAILY Qty: 30 0RF
ondansetron 4 mg tablet,disintegrating
4 mg PO Q8H PRN (Reason: nausea and vomiting) 1 Days Qty: 7 0RF
lorazepam [Ativan] 0.5 mg tablet
0.5 mg PO DAILY MDD anxiety PRN (Reason: anxiety) Qty: 3 0RF
Referrals:
Rigoberto Phillips DO [Family Provider, Family Practice]
Activity Restrictions/Additional Instructions:
Please stop drinking alcohol. Consider alternatives such as exercise or spending time with friends and family or significant other. Please be sure to reach out to your intensive outpatient program on Wednesday. If you reconsider and would like to go
to inpatient rehabilitation, please come back to the emergency department. Return to the emergency department for intractable vomiting, tremulousness, seizures, changes in mentation or any other concerns. Please drink plenty of water and hydrating
fluids.
Interventions
Interventions:
*Risk Screen - Suicide Last Done: 10/27/24 20:01
*General Assessment Last Done: 10/27/24 20:01
*Neglect/Abuse Screening Last Done: 10/27/24 20:01
*ED- Fall Risk Assessment Last Done: 10/27/24 20:01
*ED COVID-19 Vaccine History Last Done: 10/27/24 20:01
*Nursing Disposition Last Done: 10/28/24 10:31
ED- Neurological Assessment Last Done: 10/27/24 21:43
ED-Psychological Assessment Last Done: 10/27/24 21:43
Discharge Date and Time
Discharge Date/Time: 10/28/24 10:31
Print Language: SAO TOMEAN
--- NOTE | 2024-10-27 21:30 | EDRN ---
Crisis in to see patient.
[2024-10-27 21:42] LABS: Hematocrit 44.8 % (39.0-52.0); Hemoglobin 16.1 g/dL (13.0-18.0); Mean Corp Hgb Conc. 35.9 g/dL (33.0-37.0); Mean Corpuscular Volume 89.6 fL (80.0-94.0); Nucleated Red Blood Cells % 0 % (-); Platelet Count 257 10^3/uL (130-400); Red Cell Dist. Width 12.6 % (11.5-14.5)
[2024-10-27 21:59] LABS: ALT (SGPT) 15 U/L (0-50); AST (SGOT) 40 U/L (17-59); Albumin 5.4 g/dl (3.5-5.0); Alkaline Phosphatase 69 U/L (38-126); Blood Urea Nitrogen 13 mg/dl (9-20); Calcium 8.8 mg/dl (8.4-10.2); Carbon Dioxide 24 mmol/L (22-30); Chloride 105 mmol/L (98-107); Glucose 100 mg/dl (70-99); Potassium 4.3 mmol/L (3.5-5.1); Sodium 144 mmol/L (135-145); Total Protein 7.5 g/dl (6.3-8.2); eGFR > 60.00
[2024-10-28] VITALS: BP 145/90
--- NOTE | 2024-10-28 00:01 | EDRN ---
Patient is sleeping at this time, vital signs are stable, will continue to monitor
--- NOTE | 2024-10-28 00:53 | EDRN ---
Spoke with crisis, they spoke with mom who doesn't plan on filing a 302, Yanira, SENIOR STAFF PSYCHOLOGIST aware. Patient is sleeping at this time
--- NOTE | 2024-10-28 02:47 | EDRN ---
patient awake and talking with me, he doesn't remember coming in, updated him on what happened this evening, patient still not wanting any help for drinking, provided him with a drink of water, offered something to eat he didn't want anything,
patient aware he would have to have a safe and sober ride home. Call duarte in reach, aware to call if he needs anything
--- NOTE | 2024-10-28 04:02 | EDRN ---
Patient awake and ambulatory to the restroom, offered him something to eat or drink, patient provided with some orange juice and warm blankets
[2024-10-28 08:37] VITALS: BP 142/98
== END 2024-10-28 10:31 | disposition home or self-care (01) ==
LOC: EMR 19:57
PROVIDERS: Nurse Practitioner; EMERGENCY PHYSICIAN Emergency Medicine; FAMILY PHYSICIAN Family Medicine
DX: F10.129 Alcohol abuse with intoxication, unspecified (principal); Y90.8 Blood alcohol level of 240 mg/100 ml or more; R42 Dizziness and giddiness; F32.A Depression, unspecified; F41.9 Anxiety disorder, unspecified; J45.909 Unspecified asthma, uncomplicated; Z88.5 Allergy status to narcotic agent; Z88.0 Allergy status to penicillin
CPT/HCPCS: 99284; 70450; 80053; 82077; 85025

== ENCOUNTER 2024-11-19 16:58 | Emergency (ER) | payer OTHER, SELFPAY ==
[2024-11-19] VITALS (8 sets, daily range): BP systolic 98–122; BP diastolic 50–66; BMI 26.1
[2024-11-19 17:21] LABS: Hematocrit 41.2 % (39.0-52.0); Hemoglobin 14.3 g/dL (13.0-18.0); Mean Corp Hgb Conc. 34.7 g/dL (33.0-37.0); Mean Corpuscular Volume 93.0 fL (80.0-94.0); Nucleated Red Blood Cells % 0 % (-); Platelet Count 219 10^3/uL (130-400); Red Cell Dist. Width 13.2 % (11.5-14.5)
--- NOTE | 2024-11-19 17:28 | ED.GENMED ---
History of Present Illness
<Sheng Tobias MD - Last Filed: 11/19/24 17:31>
General
Chief Complaint: Alcohol Problem
Time Seen by Provider: 11/19/24 17:01
History of Present Illness
History of Present Illness:
Patient presents to the emergency department with altered mental status. Patient is a 24-year-old male with a psychiatric history and alcohol use disorder who presents after drinking alcohol for 3 straight days and today reporting some chest pain.
His mother called the medics as he lives at home. They noted him to be very agitated and they put an IV in him and gave him Versed and droperidol prior to arrival. Patient is not able to provide any history as he is sedated at this time
Past History
<Sheng Tobias MD - Last Filed: 11/19/24 17:31>
Past History
ED Past Medical History: Asthma and Psychiatric (Depression/Anxiety, takes Desvenlafaxine (Pristiq))
ED Past Surgical History: Tonsilectomy
Social History
Tobacco: Non-smoker
Alcohol: None
Drug: None
Personal: Single
Living: with family
Phy Exam
<Sheng Tobias MD - Last Filed: 11/19/24 17:31>
Physical Exam
Physical Exam:
GENERAL APPEARANCE: NAD, well developed/ well nourished
EYES lids/conjunctiva normal
EARS/NOSE/THROAT Mucous membranes moist, uvula midline without oral pharyngeal erythema, exudate or swelling
HEAD/NECK normocephalic atraumatic, neck is supple.
RESPIRATORY respiratory effort normal, speaks in full sentences, no accessory muscle use. Lungs clear to auscultation without rhonchi, wheezes, rales
CARDIAC Regular rate and rhythm, no edema.
ABDOMINAL Soft, no distention
MUSCLES/EXTREMITIES No abnormal range of motion, no swelling.
SKIN Warm, pink and dry. No rashes
NEUROLOGICAL patient is somnolent but appears comfortable and is protecting airway
PSYCH unable to assess
Scores
<Mark Foster DO - Last Filed: 11/20/24 05:53>
Withdrawal Assessment of Alcohol
Withdrawal Assessment Completed?: Not applicable
Course
<Sheng Tobias MD - Last Filed: 11/19/24 17:31>
Orders/Labs/Results
Orders:
Orders
11/19/24 17:06
EKG [Electrocardiogram (*1)] Urgent
Reason for Study: Bradycardia / Tachycardia
EKG- Treatment ONCE
11/19/24 17:07
CR Chest Portable - 1 View Urgent
Comment:
Reason For Exam: chest pain and SOB
Reason Study Needs to be Portable: Unable to Transport
11/19/24 17:11
Complete Blood Count/With Diff Urgent
Troponin I Urgent
11/19/24 17:56
Alcohol Urgent
Comprehensive Metabolic Panel Urgent
Magnesium Urgent
11/19/24 17:57
0.9% Sodium Chloride 1000 ml [Nss] 1,000 ml IV BOLUS
11/20/24 07:39
0.9% Sodium Chloride 1000 ml [Nss] 1,000 ml IV BOLUS
Lorazepam [Ativan] 1 mg IV NOW STA
Lorazepam [Ativan] 2 mg .ROUTE .[facility]
Abnormal Lab Results
11/19/24 11/19/24
17:11 17:56
WBC 4.3 L 10^3/uL
(4.8-10.8)
RBC 4.43 L 10^6/uL
(4.70-6.10)
MCH 32.3 H pg
(27.0-31.0)
Sodium 149 H mmol/L
(135-145)
Chloride 111 H mmol/L
(98-107)
Creatinine 0.6 L mg/dL
(0.7-1.3)
Calcium 7.9 L mg/dl
(8.4-10.2)
Total Protein 6.1 L g/dl
(6.3-8.2)
Alcohol, Quantitative 494 H* mg/dl
11/19/24 17:11
11/19/24 17:56
Vital Signs
Initial and Last Documented VS:
Initial Vital Signs
Pulse Resp Pulse Ox
94 15 93
11/19/24 17:06 11/19/24 17:06 11/19/24 17:06
Last Documented Vital Signs
Temp Pulse Resp BP Pulse Ox
97.6 F 103 17 126/77 96
11/19/24 17:18 11/20/24 09:00 11/20/24 08:00 11/20/24 09:00 11/20/24 08:00
<Mark Foster, - Last Filed: 11/20/24 05:53>
Orders/Labs/Results
Orders:
Orders
11/19/24 17:06
EKG [Electrocardiogram (*1)] Urgent
Reason for Study: Bradycardia / Tachycardia
EKG- Treatment ONCE
11/19/24 17:07
CR Chest Portable - 1 View Urgent
Comment:
Reason For Exam: chest pain and SOB
Reason Study Needs to be Portable: Unable to Transport
11/19/24 17:11
Complete Blood Count/With Diff Urgent
Troponin I Urgent
11/19/24 17:56
Alcohol Urgent
Comprehensive Metabolic Panel Urgent
Magnesium Urgent
11/19/24 17:57
0.9% Sodium Chloride 1000 ml [Nss] 1,000 ml IV BOLUS
11/20/24 07:39
0.9% Sodium Chloride 1000 ml [Nss] 1,000 ml IV BOLUS
Lorazepam [Ativan] 1 mg IV NOW STA
Lorazepam [Ativan] 2 mg .ROUTE .[facility]
Abnormal Lab Results
11/19/24 11/19/24
17:11 17:56
WBC 4.3 L 10^3/uL
(4.8-10.8)
RBC 4.43 L 10^6/uL
(4.70-6.10)
MCH 32.3 H pg
(27.0-31.0)
Sodium 149 H mmol/L
(135-145)
Chloride 111 H mmol/L
(98-107)
Creatinine 0.6 L mg/dL
(0.7-1.3)
Calcium 7.9 L mg/dl
(8.4-10.2)
Total Protein 6.1 L g/dl
(6.3-8.2)
Alcohol, Quantitative 494 H* mg/dl
11/19/24 17:11
11/19/24 17:56
Vital Signs
Initial and Last Documented VS:
Initial Vital Signs
Pulse Resp Pulse Ox
94 15 93
11/19/24 17:06 11/19/24 17:06 11/19/24 17:06
Last Documented Vital Signs
Temp Pulse Resp BP Pulse Ox
97.6 F 103 17 126/77 96
11/19/24 17:18 11/20/24 09:00 11/20/24 08:00 11/20/24 09:00 11/20/24 08:00
<Mary Montes, - Last Filed: 11/20/24 09:44>
Orders/Labs/Results
Orders:
Orders
11/19/24 17:06
EKG [Electrocardiogram (*1)] Urgent
Reason for Study: Bradycardia / Tachycardia
EKG- Treatment ONCE
11/19/24 17:07
CR Chest Portable - 1 View Urgent
Comment:
Reason For Exam: chest pain and SOB
Reason Study Needs to be Portable: Unable to Transport
11/19/24 17:11
Complete Blood Count/With Diff Urgent
Troponin I Urgent
11/19/24 17:56
Alcohol Urgent
Comprehensive Metabolic Panel Urgent
Magnesium Urgent
11/19/24 17:57
0.9% Sodium Chloride 1000 ml [Nss] 1,000 ml IV BOLUS
11/20/24 07:39
0.9% Sodium Chloride 1000 ml [Nss] 1,000 ml IV BOLUS
Lorazepam [Ativan] 1 mg IV NOW STA
Lorazepam [Ativan] 2 mg .ROUTE .[facility]
Abnormal Lab Results
11/19/24 11/19/24
17:11 17:56
WBC 4.3 L 10^3/uL
(4.8-10.8)
RBC 4.43 L 10^6/uL
(4.70-6.10)
MCH 32.3 H pg
(27.0-31.0)
Sodium 149 H mmol/L
(135-145)
Chloride 111 H mmol/L
(98-107)
Creatinine 0.6 L mg/dL
(0.7-1.3)
Calcium 7.9 L mg/dl
(8.4-10.2)
Total Protein 6.1 L g/dl
(6.3-8.2)
Alcohol, Quantitative 494 H* mg/dl
11/19/24 17:11
11/19/24 17:56
Vital Signs
Initial and Last Documented VS:
Initial Vital Signs
Pulse Resp Pulse Ox
94 15 93
11/19/24 17:06 11/19/24 17:06 11/19/24 17:06
Last Documented Vital Signs
Temp Pulse Resp BP Pulse Ox
97.6 F 103 17 126/77 96
11/19/24 17:18 11/20/24 09:00 11/20/24 08:00 11/20/24 09:00 11/20/24 08:00
<Sheng Tobias MD - Last Filed: 11/19/24 17:31>
*Pulse Oximetry
SaO2: 97
Patient hypoxic: no
*Critical Care Note
Total Time (30-74mins, 75-104mins- exclusive of procedures): Not Applicable
<Mark Foster DO - Last Filed: 11/20/24 05:53>
Update Note
Update Note:
02 30 patient reassessed he is awake alert and tolerating oral liquids. Airway intact vital signs normal. Patient counseled again on the importance of inpatient rehabilitation but the patient declines. Continue to monitor and anticipate discharge
in the a.m.
04 55 patient remains stable. Airway intact. Continues to refuse inpatient care. Discharge when he has a ride
<Mary Montes DO - Last Filed: 11/20/24 09:44>
Update Note
Update Note:
02 30 patient reassessed he is awake alert and tolerating oral liquids. Airway intact vital signs normal. Patient counseled again on the importance of inpatient rehabilitation but the patient declines. Continue to monitor and anticipate discharge
in the a.m.
04 55 patient remains stable. Airway intact. Continues to refuse inpatient care. Discharge when he has a ride
Attending Sign Out (Mary Montes DO)
07:40 -received signout, 24-year-old male with history of alcohol abuse presenting for intoxication. Patient brought in by mother for intoxication. Alcohol level here is markedly elevated, however patient hemodynamically stable at time of signout.
Called to bedside, patient now tachycardic, shaking, however remains awake and alert. No seizure activity, however suspected acute alcohol withdrawal. Will hide sorter benzodiazepine and IV fluids. Patient counseled regarding his alcohol usage. He
declines any inpatient rehabilitation services
09:40 -patient sleeping comfortably, mother is at bedside. Explained patient's clinical course to mother, patient declining any inpatient therapy. She is wary about bringing him home given his sleepiness after the benzodiazepine. In agreement.
Will continue to monitor and administer additional fluids with again ultimate plan for discharge
ED Attending Note
<Sheng Tobias MD - Last Filed: 11/19/24 17:31>
ED Attending Note
ED Attending Note:
Patient presents with altered mental status in the setting of likely alcohol intoxication based on history as well as sedation from prehospital crew. Patient appears very comfortable with normal vital signs. Will monitor with end-tidal CO2, check
blood work. Will continue to reassess.
-
Portions of this chart may have been created with voice recognition software.� Occasional wrong word or��sound alike� substitutions may have occurred due to the inherent limitations of voice recognition software.
Discharge Plan
Departure
Patient Disposition: Home (Routine Discharge)
Date of Disposition: 11/20/24
Time of Disposition: 04:59
Patient with high blood pressure during this ER visit?: No
Discharge Problem:
Acute alcoholic intoxication, Alcoholism
Instructions: Alcohol Use Disorder (DC)
Prescriptions:
No Action
lorazepam 0.5 mg tablet
0.5 mg PO TID PRN (Reason: anxiety) Qty: 9 0RF
Referrals:
Rigoberto Phillips DO [Family Provider, Family Practice]
Activity Restrictions/Additional Instructions:
PLEASE STOP DRINKING ALCOHOL.
It is imperative that you seek additional help such as inpatient rehabilitation.
Return immediately for intractable vomiting, vomiting blood, blood in stool or any other concerns.
Interventions
Interventions:
*Risk Screen - Suicide Last Done: 11/19/24 17:18
*General Assessment Last Done: 11/19/24 17:18
*Neglect/Abuse Screening Last Done: 11/19/24 17:18
*ED- Fall Risk Assessment Last Done: 11/19/24 17:18
*ED COVID-19 Vaccine History Last Done: 11/19/24 17:18
ED- Neurological Assessment Last Done: 11/19/24 17:18
ED-Psychological Assessment Last Done: 11/19/24 17:18
Discharge Date and Time
Print Language: SLOVAK
[2024-11-19 17:57] LABS: Troponin I < 0.012 ng/ml
[2024-11-19] MEDS: NSS 1000 IV (18:00)
[2024-11-19 18:33] LABS: ALT (SGPT) 23 U/L (0-50); AST (SGOT) 45 U/L (17-59); Albumin 4.5 g/dl (3.5-5.0); Alkaline Phosphatase 54 U/L (38-126); Blood Urea Nitrogen 10 mg/dl (9-20); Calcium 7.9 mg/dl (8.4-10.2); Carbon Dioxide 28 mmol/L (22-30); Chloride 111 mmol/L (98-107); Estimated Creatinine Clearance > 125 ml/min; Glucose 98 mg/dl (70-99); Magnesium 2.0 mg/dl (1.6-2.3); Potassium 3.7 mmol/L (3.5-5.1); Sodium 149 mmol/L (135-145); Total Protein 6.1 g/dl (6.3-8.2); eGFR > 60.00
--- NOTE | 2024-11-19 19:00 | EDRN ---
Report received, patient is sleeping at this time, will continue to monitor
--- NOTE | 2024-11-19 20:17 | EDRN ---
Mom called to check on patient, informed her once he is awake an talking we can give her a cll
Maribel: [phone]
--- NOTE | 2024-11-19 22:10 | EDRN ---
Patient remains asleep at this time, vital signs stable, will continue to monitor
[2024-11-20] VITALS (12 sets, daily range): BP systolic 103–132; BP diastolic 68–97
--- NOTE | 2024-11-20 00:13 | EDRN ---
Patient remains asleep at this time, call duarte in reach, VSS will continue to monitor
--- NOTE | 2024-11-20 01:10 | EDRN ---
Patient continues to sleep at this time, will continue to monitor
--- NOTE | 2024-11-20 01:47 | EDRN ---
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
--- NOTE | 2024-11-20 02:00 | EDRN ---
Crisis came in to speak with patient, patient declined any help from crisis, provider aware and in re-assessing patient.
--- NOTE | 2024-11-20 03:03 | EDRN ---
Patient provided with water and brett-dave, asked if he wanted a sandwich and he declined
[2024-11-20] MEDS: ATIVAN 1 MG IV (07:45)
[2024-11-20] MEDS: NSS 1000 IV ×2 (07:46→09:45)
== END 2024-11-20 12:33 | disposition home or self-care (01) ==
LOC: EMR 16:58
PROVIDERS: EMERGENCY PHYSICIAN Emergency Medicine; FAMILY PHYSICIAN Family Medicine
DX: F10.129 Alcohol abuse with intoxication, unspecified (principal); J45.909 Unspecified asthma, uncomplicated; F41.9 Anxiety disorder, unspecified; Y90.9 Presence of alcohol in blood, level not specified
CPT/HCPCS: 99283; 96374; 96361; 71045; 80053; 82077; 83735; 84484; 85025; 93005

== ENCOUNTER 2024-11-24 16:06 | Emergency (ER) | payer OTHER, SELFPAY ==
[2024-11-24 16:07] VITALS: BP 110/67; BMI 27.3
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
[2024-11-24 20:39] VITALS: BP 137/89
[2024-11-24 22:31] LABS: Hematocrit 38.1 % (39.0-52.0); Hemoglobin 13.1 g/dL (13.0-18.0); Mean Corp Hgb Conc. 34.4 g/dL (33.0-37.0); Mean Corpuscular Volume 92.7 fL (80.0-94.0); Nucleated Red Blood Cells % 0 % (-); Platelet Count 261 10^3/uL (130-400); Red Cell Dist. Width 13.2 % (11.5-14.5)
[2024-11-24 22:39] LABS: ALT (SGPT) 26 U/L (0-50); AST (SGOT) 51 U/L (17-59); Acetaminophen < 10 ug/ml (10-30); Albumin 5.0 g/dl (3.5-5.0); Alkaline Phosphatase 50 U/L (38-126); Blood Urea Nitrogen 16 mg/dl (9-20); Calcium 9.1 mg/dl (8.4-10.2); Carbon Dioxide 25 mmol/L (22-30); Estimated Creatinine Clearance > 125 ml/min; Glucose 94 mg/dl (70-99); Total Protein 6.5 g/dl (6.3-8.2); eGFR > 60.00
[2024-11-24] MEDS: ATIVAN 1 MG PO (22:48)
[2024-11-24 22:51] LABS: Salicylate < 1.0 mg/dl (2.0-20.0)
[2024-11-24 22:59] LABS: Chloride 103 mmol/L (98-107); Potassium 3.9 mmol/L (3.5-5.1); Sodium 139 mmol/L (135-145)
[2024-11-25 01:50] VITALS: BP 135/65
[2024-11-25 02:52] VITALS: BP 127/80
== END 2024-11-25 02:57 ==
LOC: EMR 16:06
PROVIDERS: EMERGENCY PHYSICIAN Emergency Medicine; FAMILY PHYSICIAN Family Medicine
DX: F41.9 Anxiety disorder, unspecified (principal); F32.A Depression, unspecified; S00.83XA Contusion of other part of head, initial encounter; Y04.2XXA Assault by strike against or bumped into by another person, initial encounter; F10.129 Alcohol abuse with intoxication, unspecified
CPT/HCPCS: 99285; 70450; 72125; 80053; 80143; 80179; 80306; 82077; 85025

== ENCOUNTER 2025-02-25 16:37 | Emergency (ER) | payer OTHER, SELFPAY ==
[2025-02-25 16:39] VITALS: BP 130/75
--- NOTE | 2025-02-25 16:48 | ED.GENMED ---
History of Present Illness
<Min Brown DO - Last Filed: 02/25/25 21:39>
General
Chief Complaint: Alcohol Problem
Source: ambulance crew
Time Seen by Provider: 02/25/25 16:41
History of Present Illness
History of Present Illness:
25-year-old male presents to the emergency room by ambulance after being found lying on the floor by his mom. Patient has a history of alcohol use disorder. He has been seen here in the emergency room for similar events. Apparently patient was
somewhat agitated for medics who gave Versed in order to alleviate his agitation. Patient opens his eyes but is not verbally answering questions. He shakes his head no when asked if he uses recreational drugs such as marijuana, cocaine,
methamphetamine.
Past History
<DO Clyde Cotton Last Filed: 02/25/25 21:39>
Past History
ED Past Medical History: Asthma and Psychiatric (Depression/Anxiety, takes Desvenlafaxine (Pristiq))
ED Past Surgical History: Tonsilectomy
Social History
Tobacco: Non-smoker
Alcohol: Occasional
Drug: None
Personal: Single
Living: with family
Phy Exam
<DO Clyde Cotton Last Filed: 02/25/25 21:39>
Physical Exam
Physical Exam:
General: Eyes closed but arousable by voice
Vitals: unremarkable
Head: Atraumatic
Eyes: Pupils equal, EOMI
Throat: Airway intact, no exudates
Neck: Trachea midline
Lungs: Clear and equal b/l
Heart: Regular rate, no murmurs
Abd: Soft, Nontender, No pulsatile mass
Neuro: Grossly nonfocal
Skin: Warm, dry, no rash
Extremities: pulses equal b/l, no edema
Scores
<Shasta Gautam DO - Last Filed: 02/26/25 06:19>
Withdrawal Assessment of Alcohol
Withdrawal Assessment Completed?: Yes
Nausea and Vomiting: No nausea and no vomiting
Tactile Disturbances: None
Tremor: No tremor
Auditory Disturbances: Not present
Paroxysmal Sweats: No sweat visible
Visual Disturbances: Not present
Anxiety: No anxiety, at ease
Headache, Fullness in Head: Not present
Agitation: Normal activity
Orientation and clouding of sensorium: Oriented and can do serial additions
Total CIWA Score: 0
Alcohol Withdrawal Medication Recommendation: Equal to MSAS Score 0-4. Monitor & re-assess q2hrs, NO MEDICATION NEEDED
Course
<Min H. Kevin DO - Last Filed: 02/25/25 21:39>
Orders/Labs/Results
Orders:
Orders
02/25/25 16:45
Thiamine Injection 200 mg IV NOW STA
02/25/25 16:51
Alcohol Urgent
CPK [Creatine Phosphokinase] Urgent
Complete Blood Count/With Diff Urgent
Comprehensive Metabolic Panel Urgent
Magnesium Urgent
02/25/25 17:00
Dextrose 5%/0.9%Sodchl 1000 ml [D5/0.9% Sodium Chloride] 1,000 ml IV 250 mls/hr
02/25/25 17:25
Haloperidol Lactate [Haldol] 5 mg IM NOW STA
Midazolam HCl [Versed] 2 mg IV NOW STA
Abnormal Lab Results
02/25/25 02/25/25
16:49 16:51
RBC 4.44 L 10^6/uL
(4.70-6.10)
MCH 31.8 H pg
(27.0-31.0)
Abs Immat Gran (auto) 0.1 H 10^3/uL
(0-0.05)
Immature Gran % 0.6 H %
(0-0.5)
Alcohol, Quantitative 584 H* mg/dl
POC Glucose 101 H mg/dl
(70-99)
02/25/25 16:51
02/25/25 16:51
Vital Signs
Initial and Last Documented VS:
Initial Vital Signs
Temp Pulse Resp BP Pulse Ox
98.7 F 109 15 130/75 98
02/25/25 16:39 02/25/25 16:39 02/25/25 16:39 02/25/25 16:39 02/25/25 16:39
Last Documented Vital Signs
Temp Pulse Resp BP Pulse Ox
98.7 F 113 16 139/79 96
02/25/25 16:39 02/26/25 05:30 02/25/25 16:45 02/26/25 05:21 02/26/25 01:00
<Shasta Gautam, DO - Last Filed: 02/26/25 06:19>
Orders/Labs/Results
Orders:
Orders
02/25/25 16:45
Thiamine Injection 200 mg IV NOW STA
02/25/25 16:51
Alcohol Urgent
CPK [Creatine Phosphokinase] Urgent
Complete Blood Count/With Diff Urgent
Comprehensive Metabolic Panel Urgent
Magnesium Urgent
02/25/25 17:00
Dextrose 5%/0.9%Sodchl 1000 ml [D5/0.9% Sodium Chloride] 1,000 ml IV 250 mls/hr
02/25/25 17:25
Haloperidol Lactate [Haldol] 5 mg IM NOW STA
Midazolam HCl [Versed] 2 mg IV NOW STA
Abnormal Lab Results
02/25/25 02/25/25
16:49 16:51
RBC 4.44 L 10^6/uL
(4.70-6.10)
MCH 31.8 H pg
(27.0-31.0)
Abs Immat Gran (auto) 0.1 H 10^3/uL
(0-0.05)
Immature Gran % 0.6 H %
(0-0.5)
Alcohol, Quantitative 584 H* mg/dl
POC Glucose 101 H mg/dl
(70-99)
02/25/25 16:51
02/25/25 16:51
Vital Signs
Initial and Last Documented VS:
Initial Vital Signs
Temp Pulse Resp BP Pulse Ox
98.7 F 109 15 130/75 98
02/25/25 16:39 02/25/25 16:39 02/25/25 16:39 02/25/25 16:39 02/25/25 16:39
Last Documented Vital Signs
Temp Pulse Resp BP Pulse Ox
98.7 F 113 16 139/79 96
02/25/25 16:39 02/26/25 05:30 02/25/25 16:45 02/26/25 05:21 02/26/25 01:00
<Min Brown, DO - Last Filed: 02/25/25 21:39>
*Pulse Oximetry
SaO2: 96
Oxygen Mode of Delivery: Room air
<Shasta Gautam DO - Last Filed: 02/26/25 06:19>
*Pulse Oximetry
Patient hypoxic: no
*Critical Care Note
Total Time (30-74mins, 75-104mins- exclusive of procedures): Not Applicable
<Shasta Gautam DO - Last Filed: 02/26/25 06:19>
Update Note
Update Note:
06:10
Patient is awake and alert, has consumed at least 3 cups of water.
No evidence of alcohol withdrawal on exam.
He has been offered [facility] evaluation, assistance with alcohol use disorder; he kindly declines.
He denies daily alcohol use and in fact states 'I have been better recently'
He has been strongly urged to discontinue all alcohol and has been encouraged to seek outpatient treatment for alcohol use disorder. Suggest AA meetings ect.
Prompt follow-up with PCP as well.
ED Attending Note
<Min Brown, - Last Filed: 02/25/25 21:39>
-
Portions of this chart may have been created with voice recognition software.� Occasional wrong word or��sound alike� substitutions may have occurred due to the inherent limitations of voice recognition software.
Discharge Plan
Departure
Patient Disposition: Home (Routine Discharge)
Date of Disposition: 02/26/25
Time of Disposition: 06:18
Patient with high blood pressure during this ER visit?: No
Condition: Good
Discharge Problem:
Acute alcohol intoxication
Instructions: Alcohol Poisoning (DC)
Prescriptions:
No Action
desvenlafaxine 100 mg Tablet Extended Release 24 Hr
100 mg PO DAILY
Referrals:
NONE, UNABLE TO INTERVIEW [Other]
Interventions
Interventions:
*General Assessment Last Done: 02/25/25 18:31
*Neglect/Abuse Screening Last Done: 02/25/25 18:32
*ED- Fall Risk Assessment Last Done: 02/25/25 16:39
*ED COVID-19 Vaccine History Last Done: 02/25/25 16:39
*ED Influenza Vaccine History Last Done: 02/25/25 16:39
ED- Neurological Assessment Last Done: 02/25/25 16:39
ED-Psychological Assessment Last Done: 02/25/25 16:39
Discharge Date and Time
Print Language: MAURITANIAN
[2025-02-25 16:50] LABS: Glucose - Point of Care 101 mg/dl (70-99)
[2025-02-25] MEDS: D5/0.9% SODIUM CHLORIDE 1000 IV (16:55)
[2025-02-25] MEDS: THIAMINE INJECTION 200 MG IV (17:11)
[2025-02-25 17:16] LABS: Hematocrit 41.5 % (39.0-52.0); Hemoglobin 14.1 g/dL (13.0-18.0); Mean Corp Hgb Conc. 34.0 g/dL (33.0-37.0); Mean Corpuscular Volume 93.5 fL (80.0-94.0); Nucleated Red Blood Cells % 0 % (-); Platelet Count 259 10^3/uL (130-400); Red Cell Dist. Width 13.1 % (11.5-14.5)
[2025-02-25] MEDS: VERSED 2 MG IV (17:31)
[2025-02-25] MEDS: HALDOL 5 MG IM (17:31)
[2025-02-25 17:35] VITALS: BP 129/75
[2025-02-25 17:43] LABS: ALT (SGPT) 13 U/L (0-50); AST (SGOT) 27 U/L (17-59); Albumin 4.6 g/dl (3.5-5.0); Alkaline Phosphatase 54 U/L (38-126); Blood Urea Nitrogen 15 mg/dl (9-20); Calcium 8.7 mg/dl (8.4-10.2); Carbon Dioxide 26 mmol/L (22-30); Chloride 105 mmol/L (98-107); Glucose 99 mg/dl (70-99); Magnesium 2.1 mg/dl (1.6-2.3); Potassium 3.7 mmol/L (3.5-5.1); Sodium 143 mmol/L (135-145); Total Protein 6.5 g/dl (6.3-8.2); eGFR > 60.00
[2025-02-25 17:44] VITALS: BP 129/75
[2025-02-25] MEDS: D5/0.9% SODIUM CHLORIDE IV (21:32)
[2025-02-26] MEDS: D5/0.9% SODIUM CHLORIDE IV ×2 (01:06→05:01)
[2025-02-26 05:21] VITALS: BP 139/79
[2025-02-26 06:00] VITALS: BP 136/87
== END 2025-02-26 06:25 | disposition home or self-care (01) ==
LOC: EMR 16:37
PROVIDERS: Emergency Medicine; EMERGENCY PHYSICIAN Emergency Medicine
DX: F10.129 Alcohol abuse with intoxication, unspecified (principal); Y90.8 Blood alcohol level of 240 mg/100 ml or more; J45.909 Unspecified asthma, uncomplicated; F41.9 Anxiety disorder, unspecified; F32.A Depression, unspecified
CPT/HCPCS: 99284; 96374; 96375; 96372; 80053; 82077; 82550; 82962; 83735; 85025

== ENCOUNTER 2025-02-26 22:30 | Inpatient (IN) | payer OTHER, SELFPAY ==
[2025-02-26] VITALS (8 sets, daily range): BP systolic 134–147; BP diastolic 66–79
[2025-02-26] MEDS: ATIVAN 2 MG IV (20:30)
[2025-02-26 20:33] LABS: Hematocrit 40.0 % (39.0-52.0); Hemoglobin 13.4 g/dL (13.0-18.0); Mean Corp Hgb Conc. 33.5 g/dL (33.0-37.0); Mean Corpuscular Volume 96.4 fL (80.0-94.0); Nucleated Red Blood Cells % 0 % (-); Platelet Count 247 10^3/uL (130-400); Red Cell Dist. Width 13.0 % (11.5-14.5)
[2025-02-26] MEDS: NSS 1000 IV (20:36)
[2025-02-26 20:40] LABS: Chloride 97 mmol/L (98-107); Potassium 4.4 mmol/L (3.5-5.1); Sodium 134 mmol/L (135-145)
[2025-02-26 20:43] LABS: Acetaminophen < 10 ug/ml (10-30); Albumin 5.0 g/dl (3.5-5.0); Alkaline Phosphatase 55 U/L (38-126); Blood Urea Nitrogen 9 mg/dl (9-20); Calcium 9.8 mg/dl (8.4-10.2); Carbon Dioxide 16 mmol/L (22-30); Glucose 99 mg/dl (70-99); Salicylate < 1.0 mg/dl (2.0-20.0); Total Protein 6.8 g/dl (6.3-8.2); eGFR > 60.00
--- NOTE | 2025-02-26 20:44 | ED.GENMED ---
History of Present Illness
General
Chief Complaint: Alcohol Problem
Source: patient
Exam Limitations: none
Time Seen by Provider: 02/26/25 20:22
Nursing documentation reviewed up to this point in time: agreed with
History of Present Illness
History of Present Illness:
The patient is a 25-year-old man with a past medical history of anxiety, depression heavy alcohol use who requested that his mom called 911 after his ' whole body started to cramp up and he felt panicked'. Patient was just seen in our emergency
department yesterday for acute alcohol intoxication, he was offered Bcares, and went home early this morning. Patient reports he has not drank alcohol since 3 PM yesterday. When I asked him why he said he did not know. Patient arrives tremorous,
tachycardic, and sweating. He is hyperventilating. Patient denies cigarette use and other drug use. He reports he drinks alcohol every 3 days, approximately a pint of vodka each time. Patient reports nausea and vomiting earlier today which has
now subsided. He denies headache and current nausea
Past History
Past History
ED Past Medical History: Asthma and Psychiatric (Depression/Anxiety, takes Desvenlafaxine (Pristiq))
ED Past Surgical History: Tonsilectomy
Social History
Tobacco: Non-smoker
Alcohol: Binge drinker
Drug: None
Personal: Single
Living: with family
Employment: Other
Family History
Family History: Other
Review of Systems
Review of Systems
Allergies reviewed?: Yes
All Other Systems: ROS reviewed and negative except as documented in HPI and ROS
Constitutional: Reports no symptoms
EENT: Reports no symptoms
Respiratory: Reports no symptoms
Cardiac: Reports diaphoresis
ABD/GI: Reports nausea and vomiting
: Reports no symptoms
Musculoskeletal: Reports no symptoms
Skin: Reports no symptoms
Neurological: Reports no symptoms
Endocrine: Reports no symptoms
Hematologic/Lymphatic: Reports no symptoms
Psychiatric: Reports anxiety
Phy Exam
Physical Exam
Physical Exam:
General; patient extremely anxious, hyperventilating and tremorous
Neck: Supple
Cardiovascular tachycardic
Lungs: Clear
Abdomen: Soft
Skin: No rash
Neuro: Nonfocal
Psychiatric: Extremely anxious, guarded
Extremities: No edema
Scores
Withdrawal Assessment of Alcohol
Withdrawal Assessment Completed?: Yes
Nausea and Vomiting: Intermittent nausea with dry heaves
Tactile Disturbances: Mild itching, pins and needles, burning or numbness
Tremor: Moderate, with patient's arms extended
Auditory Disturbances: Not present
Paroxysmal Sweats: Beads of sweat obvious on forehead
Visual Disturbances: Not present
Anxiety: Moderately anxious, or guarded, so anxiety is inferred
Headache, Fullness in Head: Not present
Agitation: Moderately fidgety and restless
Orientation and clouding of sensorium: Oriented and can do serial additions
Total CIWA Score: 22
Alcohol Withdrawal Medication Recommendation: Equal to MSAS >11. Lorazepam 2-4mg IV NOW and re-assess q1hr
Course
Orders/Labs/Results
Orders:
Orders
02/26/25 20:16
Electrocardiogram (*1) Urgent
Reason for Study: Other
Other Reason for Exam: Potential overdose
Cardiac Monitoring- Treatment ONCE
IV Insert/Care/Rem.- Treatment PRN
Pulse Ox/spot Check [RESP] Urgent
Quantity: 1
02/26/25 20:17
EKG- Treatment ONCE
02/26/25 20:18
Acetaminophen Urgent
Alcohol Urgent
Complete Blood Count/With Diff Urgent
Comprehensive Metabolic Panel Urgent
Lipase Urgent
Comment: ADD ON
Salicylate Urgent
02/26/25 20:25
Lorazepam [Ativan] 2 mg .ROUTE .STK-MED ONE
02/26/25 20:32
Urine Drug Abuse Screen Urgent
0.9% Sodium Chloride 1000 ml [Nss] 1,000 ml IV BOLUS
02/26/25 20:39
Lorazepam [Ativan] 2 mg IV NOW STA
02/26/25 20:44
Add On- LAB Urgent
Tests Added?: lipase
02/26/25 21:34
Admit/Transfer Patient As Directed
Co-Sign Provider:
Level of Care: Inpatient admission
Assign to:: IMU- Intermediate Care
Physician / Group: Htay
Diagnosis: Alcohol Withdrawal
Reason for Hospitalization: Alcohol withdrawal
Expected length of stay greater than two midnights?: Yes
ELOS- Estimated Length of Stay in days: 3
I certify the patient meets the requirements for IP care: Yes
PRN Pain Medication Management As Directed
May give lesser potent ordered pain med per pt: Yes
preference::
Protocol:: Medication orders for pain may be administered in a
manner that supports deferring to patient preference
when the pt is:
- Requesting an ordered lesser potent pain medication.
Least to most potent pain medications are defined
as: acetaminophen < NSAID < tramadol < opioids
(morphine, oxycodone, hydromorphone).
- Requesting a lesser dose of the same medication IF
ORDERED.
- Requesting a less intrusive route of administration
if both routes are prescribed by the provider (PO <
IV).
02/26/25 21:35
Code Status As Directed
Resuscitation Status: Full Code
02/26/25 22:00
0.9% Sodium Chloride 1000 ml [Nss] 1,000 ml Mvi, Adult [Multivitamin] 10 ml Thiamine Injection 100 mg IV Wide Open mls/hr
Abnormal Lab Results
02/26/25
20:18
WBC 11.7 H 10^3/uL
(4.8-10.8)
RBC 4.15 L 10^6/uL
(4.70-6.10)
MCV 96.4 H fL
(80.0-94.0)
MCH 32.3 H pg
(27.0-31.0)
Abs Immat Gran (auto) 0.1 H 10^3/uL
(0-0.05)
Absolute Neuts (auto) 7.7 H 10^3/uL
(1.4-6.5)
Absolute Monos (auto) 1.4 H 10^3/uL
(0.1-0.6)
Immature Gran % 0.7 H %
(0-0.5)
Monocytes % 11.9 H %
(1.7-9.3)
Sodium 134 L D mmol/L
(135-145)
Chloride 97 L mmol/L
(98-107)
Carbon Dioxide 16 L mmol/L
(22-30)
Total Bilirubin 1.7 H D mg/dl
(0.2-1.3)
Salicylates < 1.0 L mg/dl
(2.0-20.0)
Acetaminophen < 10 L ug/ml
(10-30)
02/26/25 20:18
02/26/25 20:18
Vital Signs
Initial and Last Documented VS:
Initial Vital Signs
Pulse Resp
180 19
02/26/25 20:21 02/26/25 20:21
Last Documented Vital Signs
Pulse Resp BP Pulse Ox
103 19 142/75 99
02/26/25 22:30 02/26/25 22:30 02/26/25 22:30 02/26/25 22:30
MDM/Problems Addressed
Differential Diagnosis Includes:
Acute alcohol withdrawal, acute hyperkalemia, alcoholic ketoacidosis
MDM/Problems Addressed:
Patient presents with acute tremor, tachycardia and anxiety
Chronic conditions affecting care:
Heavy chronic alcohol use
Acute Exacerbation and/or Progression of Chronic Illness:
Patient may have acute alcohol withdrawal related to chronic alcoholism
*Pulse Oximetry
SaO2: 96
Oxygen Mode of Delivery: Room air
Patient hypoxic: no
*EKG
Interpreted by ED Provider?: Yes
Interpretation: abnormal
Comparison EKG: no comparison EKG present
Rate: tachycardiac
Rhythm: sinus
[place]: normal axis
Interval: normal interval
QRS Pattern: wide non-specific
Ischemia: non-specific ST changes
*Respiratory Technician Interpretation
Rate: tachycardiac
Interpretation: abnormal
Rhythm: sinus
*Critical Care Note
Total Time (30-74mins, 75-104mins- exclusive of procedures): Not Applicable
Data Reviewed
Review of Other/Old Records Reveals: Progress Notes (Crisis note reviewed by me from 11/24/2024 when patient was evaluated for anxiety and depression)
Source: patient and ambulance crew
Patient Management
Escalation/DeEscalation of care consider admission/obs:
I spoke with the patient's mother over the phone who was crying to me, explaining that she feels her son needs help. Mom aware that patient will be admitted to the hospital for alcohol withdrawal
ED Attending Note
-
Portions of this chart may have been created with voice recognition software.� Occasional wrong word or��sound alike� substitutions may have occurred due to the inherent limitations of voice recognition software.
Discharge Plan
Departure
Patient Disposition: Admit
Date of Disposition: 02/26/25
Time of Disposition: 20:52
Admit to: Telemetry
Presentation/result/management discussed w/ accepting MD/DO: Hospitalist
Patient with high blood pressure during this ER visit?: Yes
Condition: Good
Covid-19: Not Applicable
Discharge Problem:
Acute alcohol withdrawal, Acute respiratory alkalosis
Interventions
Interventions:
*Risk Screen - Suicide Last Done: 02/26/25 21:22
*General Assessment Last Done: 02/26/25 20:20
*Neglect/Abuse Screening Last Done: 02/26/25 21:22
*ED- Fall Risk Assessment Last Done: 02/26/25 21:22
*ED COVID-19 Vaccine History Last Done: 02/26/25 21:22
*ED Influenza Vaccine History Last Done: 02/26/25 21:22
ED- Neurological Assessment Last Done: 02/26/25 20:30
ED-Psychological Assessment Last Done: 02/26/25 20:30
[2025-02-26 20:55] LABS: AST (SGOT) 41 U/L (17-59)
[2025-02-26 21:08] LABS: Lipase 59 U/L (23-300)
--- NOTE | 2025-02-26 21:22 | HPS.HSE ---
Family Physician
-
Family Physician: NO INTERVIEW UNKNOWN
Chief Complaint
-
Mom called 911 ' his ' whole body started to cramp up and he felt panicked'.
History of Present Illness
25M HX Binge ETOH use disorder, anxiety, depression seen at ER:
- mom called 911 after his ' whole body started to cramp up and he felt panicked'.
- seen in ER yesterday for acute alcohol intoxication, he was offered Bcares, and went home early this morning.
- not drank alcohol since 3 PM yesterday
- Patient arrives tremulous, tachycardic, and sweating and hyperventilating.
ROS
- denies cigarette use and other drug use.
- reports ETOH every 3 days, approximately a pint of vodka each time.
- reports nausea and vomiting earlier today which has now subsided.
- denies headache and current nausea
Medical History
Past Medical History
Past Medical History: Reports Psychiatric (Depression/Anxiety, takes Desvenlafaxine (Pristiq))) and Other (ETOH use disorder)
Past Surgical History: Reports Tonsilectomy
Social History
Tobacco: Non-smoker
Alcohol: Binge drinker
Drug: None
Personal: Single
Living: With Family
Family History
Family History: Not pertinent
Allergies / Home Medications
Allergies reflects when Allergies were last updated in [employer].
Home Medications with original date entered in [employer] by [employer]
Allergy/Medication List:
Allergies
Allergy/AdvReac Type Severity Reaction Status Date / Time
Penicillins Allergy Intermediate Rash Verified 11/24/24 16:34
morphine Allergy Nausea / Verified 11/24/24 16:34
Vomiting
oxycodone Allergy Nausea / Verified 11/24/24 16:34
Vomiting
Home Medications
desvenlafaxine 100 mg tablet,extended release 24 hr 100 mg PO DAILY 02/25/25
Review of Systems
-
Constitutional: Reports No Symptoms
EENT: Reports No Symptoms
Respiratory: Reports No Symptoms
Cardiac: Reports No Symptoms
Abdomen/GI: Reports No Symptoms
: Reports No Symptoms
Musculoskeletal: Reports No Symptoms
Skin: Reports No Symptoms
Neurological: Reports See HPI
Endocrine: Reports No Symptoms
Hematologic/Lymphatic: Reports No Symptoms
Psych: Reports See HPI and Anxiety
Physical Exam
Vital Signs
Vital Signs
Pulse Resp BP Pulse Ox
101 16 134/68 99
02/26/25 21:15 02/26/25 21:15 02/26/25 21:00 02/26/25 21:15
Physical Exam
General: Other (drowzy s/p IV Ativan )
HEENT: NormoCephalic and Anicteric
Respiratory: Clear
Cardiac: S1/S2 and Tachycardia
GI: Soft, Non Tender and Non Distended
Neuro: Other (sedated )
Psych: Anxious (somewaht sedated s/p IV antiavian )
Laboratory Results
-
02/26/25 20:18
02/26/25 20:18
Laboratory Results
Total Bilirubin 1.7 mg/dl (0.2-1.3) H D 02/26/25 20:18
AST 41 U/L (17-59) 02/26/25 20:18
Alkaline Phosphatase 55 U/L (38-126) 02/26/25 20:18
Lipase 59 U/L (23-300) 02/26/25 20:18
Data Reviewed
-
Lab Data: Labs Reviewed by me
Impression/Plan
-
Vital Signs
Pulse Resp BP Pulse Ox
101 16 134/68 99
02/26/25 21:15 02/26/25 21:15 02/26/25 21:00 02/26/25 21:15
02/26/25
20:30 02/26/25
20:32 02/26/25
20:45
Pulse 119 110
Resp Rate 25 20
Blood pressure 145/66
02/26/25
20:18
WBC 11.7 H
Hgb 13.4
Sodium 134 L D
Potassium 4.4
Chloride 97 L
Carbon Dioxide 16 L
Creatinine 0.7
eGFR > 60.00
Total Bilirubin 1.7 H D
AST 41
ALT Pending
Alkaline Phosphatase 55
02/25/25 02/26/25
16:51 20:18
Salicylates < 1.0 L
Acetaminophen < 10 L
Alcohol, Quantitative 584 H* None detected
NO prior hospitalist admission:
ASSESSMENT & PLAN
Acute ETOH WDS : severe and at risk for DTs
Significant autonomic hyperarousal s/s
- last ETOH use was 3 pm yesterday
- Non detectable ETOH now , was 584 yesterday
- s/p IV Ativan 2mg at ER - drowsy but easily arousable
- start PHB protocol
- Banana bag
- CRM consult in AM
HX Depression/Anxiety
- co/w Desvenlafaxine (Pristiq))in AM
DVT Px: SCD
Full code
IMU
[2025-02-26] MEDS: MULTIVITAMIN 1011 ML IV (21:33)
[2025-02-26] MEDS: MULTIVITAMIN 1011 MG IV (21:33)
[2025-02-26 21:50] LABS: ALT (SGPT) < 30 U/L (0-50)
[2025-02-27] VITALS (12 sets, daily range): BP systolic 115–161; BP diastolic 67–100
[2025-02-27] MEDS: NSS 1000 IV ×3 (00:05→16:49)
[2025-02-27] MEDS: PHENOBARBITAL 104 MG IV (00:29)
--- NOTE | 2025-02-27 02:53 | PTCARENOTE ---
Rec'd pt from ED RN. Pt drowsy, lethargic at the time of transfer, but arousable to verbal stimuli. MSAS 3. Denies complaints. Able to answer orientation questions appropriately and follow commands. Call duarte within reach. VSS. Care ongoing.
[2025-02-27 05:13] LABS: Hematocrit 37.5 % (39.0-52.0); Hemoglobin 12.5 g/dL (13.0-18.0); Mean Corp Hgb Conc. 33.3 g/dL (33.0-37.0); Mean Corpuscular Volume 96.4 fL (80.0-94.0); Platelet Count 201 10^3/uL (130-400); Red Cell Dist. Width 13.1 % (11.5-14.5)
[2025-02-27 05:44] LABS: ALT (SGPT) 11 U/L (0-50); AST (SGOT) 38 U/L (17-59); Albumin 4.1 g/dl (3.5-5.0); Alkaline Phosphatase 48 U/L (38-126); Blood Urea Nitrogen 9 mg/dl (9-20); Calcium 8.5 mg/dl (8.4-10.2); Carbon Dioxide 22 mmol/L (22-30); Chloride 102 mmol/L (98-107); GGTP 29 U/L (15-73); Glucose 71 mg/dl (70-99); Magnesium 2.1 mg/dl (1.6-2.3); Potassium 3.6 mmol/L (3.5-5.1); Sodium 131 mmol/L (135-145); Total Protein 5.9 g/dl (6.3-8.2); eGFR > 60.00
--- NOTE | 2025-02-27 07:29 | W.PN.UPDATE ---
Update Note
Progress Note Update
I saw and evaluated the patient. I reviewed the resident�s note and agree with findings and plan as documented in the resident�s note.
Currently denies diaphoresis or hallucinations.
Gen: NAD, AAOx3.
Eyes: EOMI, PERRLA, no scleral icterus.
Neck: supple.
CV: tachy, reg rhythm, +S1/S2, no m/r/g.
Resp: CTAB, no rales, wheezes, or rhonchi.
Abd: +BS, soft, NT, ND
Skin: No rashes.
Neuro: CN 2-12 intact, non-focal. Tremulous voice.
Psych: Normal mood and affect.
Acute ETOH W/D:
-last drink 1500 on 02/25/25
-EtOH level now undetectable (was 584 on 02/25/25)
-s/p 2mg IV Ativan in ER
-cont Phenobarbital
-cont IVFs
-cont thiamine/folate
-at high risk for developing DTs
Other problems:
Depression/Anxiety: cont Desvenlafaxine
Hyponatremia, mild, trend
FULL/SCDs
[2025-02-27] MEDS: PHENOBARBITAL 97.5 MG IV ×3 (08:36→21:12)
[2025-02-27] MEDS: THIAMINE INJECTION 200 MG IV ×2 (08:36→19:35)
[2025-02-27] MEDS: FOLVITE 1 MG PO (08:37)
[2025-02-27] MEDS: NON-FORMULARY ITEM 100 MG PO (14:03)
--- NOTE | 2025-02-27 15:30 | CM ---
I.A: Completed By MARIA TERESA Jamison.
Patient lives with his parents in a [address] with [address], full flight inside, No DME, No VN/PT, and No Inpatient Rehab.
PCP: Dr. Rigoberto Kunz
Pharmacy: [facility]
CM consulted for due to alcohol w/d. At first, patient was not interested stating that he uses a counselor about 1 month ago and can re-connect with this counselor. However, MARIA TERESA Jamison pushed to consider [facility], patient agreed. MARIA TERESA Jamison spoke to
Gagandeep from [facility] who met the patient as well as mom who came later- patient might Inpatient D&A. Spoke with mom after they met with Gagandeep, they are expecting Gagandeep to visit tomorrow.
PLAN: To Inpatient D/A vs. Home No Needs.
[2025-02-28] VITALS: BP 136/97
[2025-02-28 02:00] VITALS: BP 122/72
[2025-02-28] MEDS: NSS IV (03:13)
--- NOTE | 2025-02-28 03:32 | PTCARENOTE ---
Pt oriented, able to make needs known. Ambulatory to bathroom with minimal assistance with cords. Denies complaints. IVF maintained. Care ongoing.
[2025-02-28 04:00] VITALS: BP 126/78
[2025-02-28 06:16] LABS: Hematocrit 38.9 % (39.0-52.0); Hemoglobin 13.1 g/dL (13.0-18.0); Mean Corp Hgb Conc. 33.7 g/dL (33.0-37.0); Mean Corpuscular Volume 97.7 fL (80.0-94.0); Nucleated Red Blood Cells % 0 % (-); Platelet Count 197 10^3/uL (130-400); Red Cell Dist. Width 12.7 % (11.5-14.5)
[2025-02-28 06:46] LABS: ALT (SGPT) 13 U/L (0-50); AST (SGOT) 54 U/L (17-59); Albumin 4.2 g/dl (3.5-5.0); Alkaline Phosphatase 42 U/L (38-126); Blood Urea Nitrogen 3 mg/dl (9-20); Calcium 8.6 mg/dl (8.4-10.2); Carbon Dioxide 29 mmol/L (22-30); Chloride 100 mmol/L (98-107); Estimated Creatinine Clearance > 125 ml/min; Glucose 86 mg/dl (70-99); Potassium 3.3 mmol/L (3.5-5.1); Sodium 133 mmol/L (135-145); Total Protein 6.2 g/dl (6.3-8.2); eGFR > 60.00
--- NOTE | 2025-02-28 08:00 | PTCARENOTE ---
Pt AAOx3 pleasant and cooperative. Took meds without incident
[2025-02-28] MEDS: NON-FORMULARY ITEM 1 MG PO (08:23)
[2025-02-28] MEDS: PHENOBARBITAL 97.5 MG IV ×3 (08:24→21:16)
[2025-02-28] MEDS: FOLVITE 1 MG PO (08:24)
[2025-02-28] MEDS: THIAMINE INJECTION 200 MG IV ×2 (08:26→19:42)
[2025-02-28] MEDS: KCL 40 MEQ PO ×2 (09:00→12:39)
--- NOTE | 2025-02-28 09:01 | W.PN.HOSP.TC ---
Today's Communication/Plan
-
Continue Phenobarbital
Continue Thiamine/Folate
Transferred to telemetry
Trend labs (sodium/potassium)
Assessment / Plan
Assessment / Plan
Impression: 25 year old male patient presented to ED arriving with tremulousness, tachycardia, and hyperventilating. Patient was seen here the day prior for alcohol intoxication. He was offered Bcares, and then went home. His mother found him at
home passed out on the floor with his lower extremities shaking tonight. Yesterday night, he had to be chemically sedated and taken to the ED because he was highly intoxicated.
Plan:
#Acute ETOH Withdrawal
Last drink 3PM on 02/25/2025
s/p 2 mg IV Ativan in ER
s/p IVF
Continue Phenobarbital
Continue Thiamine/Folate
Transfer to telemetry
#Depression/Anxiety
Continue Desvenlafaxine
#Hyponatremia
Mild, Continue to trend
#Hypokalemia
Replete
Full Code Status
DVT PPx: SCDs
Anticipated Discharge: Within 24 hours
Subjective/Interval History
-
Date of Service: February 28, 2025
No acute overnight events were reported for this patient.
Objective Data
-
Labs:
Laboratory Results
02/28/25
05:19
WBC 6.7
Hgb 13.1
Hct 38.9 L
Plt Count 197
Sodium 133 L
Potassium 3.3 L
Chloride 100
Carbon Dioxide 29
BUN 3 L
Creatinine 0.6 L
Glucose 86
Calcium 8.6
Total Bilirubin 1.5 H
AST 54
ALT 13
Alkaline Phosphatase 42
Vital Signs:
Vital Signs
Temp Pulse Resp BP Pulse Ox
97.6 F 73 15 126/78 98
11/12/25 03:39 02/28/25 06:00 02/28/25 06:00 02/28/25 04:00 02/27/25 20:40
I&O
02/27/25 02/28/25 03/01/25
06:59 06:59 06:59
Intake Total / 5 1959
Balance 5 / 1959
EKG: SINUS TACHYCARDIA,NON-SPECIFIC INTRA-VENTRICULAR CONDUCTION BLOCK NSST
Review of Systems
-
History Source: Patient
All other systems: Reviewed and negative
Physical Exam
-
General: Well Developed, No Apparent Distress and Comfortable
HEENT: Normocephalic and Atraumatic
Respiratory: Clear to Auscultation
Cardiac: Regular Rhythm and S1/S2
Breast: Deferred by me
GI: Soft, Nontender, Nondistended and Normal Bowel Sounds
Musculoskeletal: No Clubbing, No Cyanosis and No Edema
Neuro: AO x 3
Data Reviewed
-
Medical Tests (Nuc Med, Echo etc): Report Reviewed by me and Discussed with Physician
Labs: Labs Reviewed by me and Discussed with Physician
--- NOTE | 2025-02-28 09:44 | W.PN.UPDATE ---
Update Note
Progress Note Update
I saw and evaluated the patient. I reviewed the resident�s note and agree with findings and plan as documented in the resident�s note.
Currently denies diaphoresis, tremor, anxiety, or hallucinations.
Gen: NAD, AAOx3.
Eyes: EOMI, PERRLA, no scleral icterus.
Neck: supple.
CV: remains tachy, reg rhythm, +S1/S2, no m/r/g.
Resp: remains CTAB, no rales, wheezes, or rhonchi.
Abd: +BS, soft, NT, ND
Skin: No rashes.
Neuro: CN 2-12 intact, non-focal.
Psych: Normal mood and affect.
Acute ETOH W/D:
-last drink 1500 on 02/25/25
-EtOH level now undetectable (was 584 on 02/25/25)
-s/p 2mg IV Ativan in ER
-cont Phenobarbital
-s/p IVFs
-cont thiamine/folate
-transfer to tele
Other problems:
Depression/Anxiety: cont Desvenlafaxine
Hyponatremia, mild, trend
Hypokalemia, replete
FULL/SCDs
Dispo: goal for d/c 02/28
--- NOTE | 2025-02-28 15:53 | CM ---
F/U: Mom called to say that she will be here when Gagandeep maylin VALLEJO meets with her son. We all met with the patient, for a long time, he denied going to Inpatient, he agreed to consider it, then we left him to think on his own. Gagandeep maylin VALLEJO met
with him on his own, the patient who said this before in the earlier meeting, will only agree if he can stay 1 night at his parents home then go to [facility] the next day. We hope that he follows this course and his commitment on going. PLAN:
Inpatient Rehab after DC No needs to Home.
[2025-02-28 19:21] VITALS: BP 141/82
[2025-02-28 21:20] VITALS: BP 141/89
--- NOTE | 2025-02-28 23:41 | PTCARENOTE ---
assumed care of patient. pt is AAOx3, able to make needs known. VSS. MSAS-1 for increased HR. no complaints of pain. care ongoing.
[2025-03-01 04:21] VITALS: BP 128/89
[2025-03-01 06:44] LABS: Hematocrit 43.1 % (39.0-52.0); Hemoglobin 14.7 g/dL (13.0-18.0); Mean Corp Hgb Conc. 34.1 g/dL (33.0-37.0); Mean Corpuscular Volume 95.8 fL (80.0-94.0); Nucleated Red Blood Cells % 0 % (-); Platelet Count 230 10^3/uL (130-400); Red Cell Dist. Width 12.7 % (11.5-14.5)
[2025-03-01 06:52] LABS: ALT (SGPT) 20 U/L (0-50); AST (SGOT) 88 U/L (17-59); Albumin 4.6 g/dl (3.5-5.0); Alkaline Phosphatase 48 U/L (38-126); Blood Urea Nitrogen 5 mg/dl (9-20); Calcium 9.6 mg/dl (8.4-10.2); Carbon Dioxide 30 mmol/L (22-30); Chloride 99 mmol/L (98-107); Estimated Creatinine Clearance > 125 ml/min; Glucose 91 mg/dl (70-99); Magnesium 2.1 mg/dl (1.6-2.3); Potassium 3.9 mmol/L (3.5-5.1); Sodium 134 mmol/L (135-145); Total Protein 6.9 g/dl (6.3-8.2); eGFR > 60.00
--- NOTE | 2025-03-01 08:08 | W.PN.HOSP.TC ---
Today's Communication/Plan
-
Continue Thiamine/folate
Discontinue Phenobarbital taper
Promised to seek help at [facility] (Inpatient Rehab) if allowed to be discharged home first.
Patient ready for discharge.
Assessment / Plan
Assessment / Plan
Impression: 25 year old male patient presented to ED arriving with tremulousness, tachycardia, and hyperventilating. Patient was seen here the day prior for alcohol intoxication. He was offered Bcares, and then went home. His mother found him at
home passed out on the floor with his lower extremities shaking tonight. Yesterday night, he had to be chemically sedated and taken to the ED because he was highly intoxicated.
Plan:
#Acute ETOH Withdrawal
Last drink 3PM on 02/25/2025
s/p 2 mg IV Ativan in ER
s/p IVF
Continue Phenobarbital
Continue Thiamine/Folate
Transfer to telemetry
#Depression/Anxiety
Continue Desvenlafaxine
#Hyponatremia
Mild, Continue to trend
#Hypokalemia
Replete
Full Code Status
DVT PPx: SCDs
Anticipated Discharge: Today
Subjective/Interval History
-
Date of Service: March 01, 2025
Objective Data
-
Labs:
Laboratory Results
03/01/25
06:09
WBC 7.5
Hgb 14.7
Hct 43.1
Plt Count 230
Sodium 134 L
Potassium 3.9
Chloride 99
Carbon Dioxide 30
BUN 5 L
Creatinine 0.7
Glucose 91
Calcium 9.6
Total Bilirubin 1.2
AST 88 H
ALT 20
Alkaline Phosphatase 48
Vital Signs:
Vital Signs
Temp Pulse Resp BP Pulse Ox
97.8 F 74 13 128/89 96
11/13/25 02:47 03/01/25 04:21 02/28/25 12:00 03/01/25 04:21 02/28/25 20:18
I&O
02/28/25 03/01/25 03/02/25
06:59 06:59 06:59
Intake Total 1959
Balance 1959
--- NOTE | 2025-03-01 08:08 | W.DCSUMMARY ---
Discharge Summary
Discharge Data
Date of Admission: 02/26/25
Date of Discharge: 03/01/25
-
Pending Results: No
Hospital Course
Discharging Physician : Dr. Jovan Castro, Dr. Nereyda Monreal
Disposition : Home
Principal Discharge diagnosis : Acute Alcohol Withdrawal
Chronic Discharge diagnosis : Depression, Anxiety, Hyponatremia, Hypokalemia
Hospital Course : 25 year old male patient presented to ED arriving with tremulousness, tachycardia, and hyperventilating. Patient was seen here the day prior for alcohol intoxication. He was offered Bcares, and then went home. His mother found
him at home passed out on the floor with his lower extremities shaking tonight. Yesterday night, he had to be chemically sedated and taken to the ED because he was highly intoxicated. He reported ETOH every 3 days, approximately a pint of vodka each
time. He reported nausea and vomiting earlier that day that eased up. His last drink at the time we from afternoon time the day before. Patient was given IV Ativan 2 mg at ER, where he became drowsy but easily arousable. PHB protocol was started and
a banana bag was placed for patient. Patient's phenobarbital, IV fluid, thiamine, folate were all continued. Despite denying diaphoresis or hallucinations around this time, patient was still at high risk for developing delirium tremens. On his 3rd
day of hospitalization, patient was out of the danger zone in terms of his withdrawal symptoms and had made an almost full recovery. Ultimately he was kept an additional day because he was still tachycardic on room air. On day #4, Patient is ready
for discharge. His phenobarbital taper will be discontinued and his thiamine and folate can continue at home. He has promised to go to [facility] for Inpatient Rehab if he is allowed to be discharged with one day at home.
Important imaging findings :
EKG: SINUS TACHYCARDIA,NON-SPECIFIC INTRA-VENTRICULAR CONDUCTION BLOCK NSST
Procedure findings :
Discharge Plan
-
Patient Disposition: Home (Routine Discharge)
Discharge Diagnosis/Procedures: Acute alcohol withdrawal, depression, anxiety, hyponatremia, hypokalemia
Condition: Good
Diet: No restrictions and Regular
Activity: No restrictions and With assistance
Driving Restrictions: As prior to admission
Bathing Restrictions: OK to Shower
Specialty Instructions: Weigh Daily- Call MD for wt gain/loss 3 lbs overnight/5 lbs in 1 week
Activity Restrictions/Additional Instructions:
Patient is strongly encouraged to go to [facility] (Inpatient Rehab) day after discharge.
Instructions: Alcohol Use Disorder (DC)
Referrals:
UNKNOWN,NO INTERVIEW [Family Provider]
Prescriptions:
New
thiamine mononitrate (vit B1) 100 mg Tablet
100 mg PO BID Qty: 0 0RF
folic acid 1 mg Tablet
1 mg PO DAILY Qty: 0 0RF
Continued
desvenlafaxine 100 mg Tablet Extended Release 24 Hr
100 mg PO DAILY
Discharge Orders:
Discharge Patient (As Directed); Ordered 03/01/25
Ordered By: Jovan Castro
Discharge Date and Time
Print Language: CAMBODIAN
[2025-03-01] MEDS: THIAMINE INJECTION 200 MG IV (08:10)
[2025-03-01] MEDS: LUMINAL 64.8 MG PO (08:10)
[2025-03-01] MEDS: FOLVITE 1 MG PO (08:10)
[2025-03-01] MEDS: NON-FORMULARY ITEM 100 MG PO (08:11)
[2025-03-01 08:15] VITALS: BP 133/83
--- NOTE | 2025-03-01 08:44 | W.PN.UPDATE ---
Update Note
Progress Note Update
I saw and evaluated the patient. I reviewed the resident�s note and agree with findings and plan as documented in the resident�s note.
Still denies diaphoresis, tremor, anxiety, or hallucinations.
Gen: NAD, AAOx3.
Eyes: EOMI, PERRLA, no scleral icterus.
Neck: supple.
CV: RRR, +S1/S2, no m/r/g.
Resp: continues to remain CTAB, no rales, wheezes, or rhonchi.
Abd: +BS, soft, NT, ND
Skin: No rashes.
Neuro: remains CN 2-12 intact, non-focal.
Psych: Normal mood and affect.
Acute ETOH W/D:
-last drink 1500 on 02/25/25
-EtOH level now undetectable (was 584 on 02/25/25)
-s/p 2mg IV Ativan in ER
-has been on Phenobarbital taper, can stop on d/c
-s/p IVFs
-cont thiamine/folate
Other problems:
Depression/Anxiety: cont Desvenlafaxine
Hyponatremia, mild, trend
Hypokalemia, replete
FULL/SCDs
Medically cleared for discharge.
Total time spent on d/c = 34 min. This included today's physical exam, progress note, review of laboratory and diagnostic data, preparation of discharge documents and prescriptions, and discussions about the pt's hospital course and discharge plan
with the patient and other medical receptionist biller involved in the patient's care.
[2025-03-01 12:08] VITALS: BP 145/81
--- NOTE | 2025-03-01 15:11 | CM ---
F/U: Patient did completed intake with [facility], the Inpatient D&A facility ([facility]), so the plan is that the patient will go home for the night then to the IP[facility] tomorrow. [facility]AR[facility] will inform MARIA TERESA Jamison if patient showed up to the facility. PLAN:
Home No Needs.
== END 2025-03-01 12:24 | disposition home or self-care (01) | DRG 897 ==
LOC: IMU 22:30
PROVIDERS: Emergency Medicine; Physician Assistant Medical; ADMITTING PHYSICIAN Internal Medicine; ATTENDING PHYSICIAN Internal Medicine; EMERGENCY PHYSICIAN Emergency Medicine
DX: F10.139 Alcohol abuse with withdrawal, unspecified (principal); E87.1 Hypo-osmolality and hyponatremia; F41.9 Anxiety disorder, unspecified; F32.A Depression, unspecified; E87.6 Hypokalemia; Z88.0 Allergy status to penicillin; Z88.5 Allergy status to narcotic agent; J45.909 Unspecified asthma, uncomplicated
CPT/HCPCS: 80053; 80143; 80179; 80306; 80307; 82077; 82977; 83690; 83735; 84100; 85025; 85027; 93005; 96361; 96374; 99285

== ENCOUNTER 2025-04-14 20:43 | Emergency (ER) | payer OTHER, SELFPAY ==
[2025-04-14 20:52] VITALS: BP 135/81
[2025-04-14 21:01] VITALS: BMI 28.1
[2025-04-14 21:17] LABS: Hematocrit 40.2 % (39.0-52.0); Hemoglobin 13.9 g/dL (13.0-18.0); Mean Corp Hgb Conc. 34.6 g/dL (33.0-37.0); Mean Corpuscular Volume 92.4 fL (80.0-94.0); Nucleated Red Blood Cells % 0 % (-); Platelet Count 226 10^3/uL (130-400); Red Cell Dist. Width 13.1 % (11.5-14.5)
--- NOTE | 2025-04-14 21:20 | ED.GENMED ---
History of Present Illness
General
Chief Complaint: Crisis Evaluation
Time Seen by Provider: 04/14/25 20:57
History of Present Illness
History of Present Illness:
25-year-old with history of alcohol abuse presents to the emergency department via EMS for suicidal statements. The patient admits to heavy alcohol use today most recently 2 hours prior to arrival. He stated to his girlfriend that he consumed take
a bunch of pills and kill myself' which prompted the 911 call. Family plans to 302 the patient. He denies active SI denies any prior thoughts of SI before making this statement. Denies hallucinations or other illicit substance use.
Past History
Past History
ED Past Medical History: Asthma and Psychiatric (Depression/Anxiety, takes Desvenlafaxine (Pristiq))
ED Past Surgical History: Tonsilectomy
Social History
Tobacco: Non-smoker
Alcohol: Binge drinker
Drug: None
Personal: Single
Living: with family
Employment: Other
Family History
Family History: Other
Review of Systems
Review of Systems
Allergies reviewed?: Yes
All Other Systems: ROS reviewed and negative except as documented in HPI and ROS
Phy Exam
Physical Exam
Physical Exam:
GEN: Well appearing, NAD, WDWN
HEENT: Oral mucosa moist, no scleral icterus
Cardiac: Regular rate
Lung: No respiratory distress, no tachypnea
MSK: No gross deformity or injuries
Skin: Good color, no pallor or jaundice, no rashes
Neuro: AO x3, moves all extremities freely
Psych: Calm, cooperative
Course
Orders/Labs/Results
Orders:
Orders
04/14/25 20:52
Crisis Consult Urgent
Reason for Consult: +SI
04/14/25 20:57
ED Special Safety Observation ONCE
Observation level: One to One
04/14/25 21:08
Acetaminophen Urgent
Alcohol Urgent
Complete Blood Count/With Diff Urgent
Comprehensive Metabolic Panel Urgent
Salicylate Urgent
04/15/25 12:35
Alcohol Urgent
Abnormal Lab Results
04/14/25
21:08
RBC 4.35 L 10^6/uL
(4.70-6.10)
MCH 32.0 H pg
(27.0-31.0)
Immature Gran % 0.7 H %
(0-0.5)
Neutrophils % 38.2 L %
(42.2-75.2)
Monocytes % 9.9 H %
(1.7-9.3)
Chloride 109 H mmol/L
(98-107)
Salicylates < 1.0 L mg/dl
(2.0-20.0)
Acetaminophen < 10 L ug/ml
(10-30)
04/14/25 21:08
04/14/25 21:08
Vital Signs
Initial and Last Documented VS:
Initial Vital Signs
Temp Pulse Resp BP Pulse Ox
98.5 F 101 18 135/81 97
04/14/25 20:52 04/14/25 20:52 04/14/25 20:52 04/14/25 20:52 04/14/25 20:52
Last Documented Vital Signs
Temp Pulse Resp BP Pulse Ox
98.5 F 92 20 148/82 99
04/14/25 20:52 04/15/25 15:29 04/15/25 15:29 04/15/25 15:29 04/15/25 15:29
MDM/Problems Addressed
MDM/Problems Addressed:
Backup 302 is petitioned by family; patient will require extended observation in the ED until sobriety at which time he will have reassessment to determine his mental health needs. May benefit from dual diagnosis program versus outpatient rehab
for ETOH.
*Pulse Oximetry
SaO2: 97
Oxygen Mode of Delivery: Room air
Patient hypoxic: no
*Critical Care Note
Total Time (30-74mins, 75-104mins- exclusive of procedures): Not Applicable
ED Attending Note
-
Portions of this chart may have been created with voice recognition software.� Occasional wrong word or��sound alike� substitutions may have occurred due to the inherent limitations of voice recognition software.
Discharge Plan
Departure
Patient Disposition: Psych Facility
Discharge Problem:
Alcohol intoxication
Prescriptions:
No Action
desvenlafaxine 100 mg Tablet Extended Release 24 Hr
100 mg PO DAILY
thiamine mononitrate (vit B1) 100 mg Tablet
100 mg PO BID Qty: 0 0RF
folic acid 1 mg Tablet
1 mg PO DAILY Qty: 0 0RF
Referrals:
UNKNOWN - PT NOT,INTERVIEWE [Family Provider]
Interventions
Interventions:
*General Assessment Last Done: 04/14/25 21:03
*Neglect/Abuse Screening Last Done: 04/14/25 20:49
*ED COVID-19 Vaccine History Last Done: 04/14/25 21:03
*ED Influenza Vaccine History Last Done: 04/14/25 21:03
[facility] Risk Assessment Tool Last Done: 04/15/25 15:34
*Risk Screen - Suicide (C-SSRS) Last Done: 04/14/25 20:50
*Nursing Disposition Last Done: 04/15/25 16:17
ED-Psychological Assessment Last Done: 04/15/25 15:33
Discharge Date and Time
Discharge Date/Time: 04/15/25 16:18
Print Language: [email or web address]
[2025-04-14 21:35] LABS: ALT (SGPT) 30 U/L (0-50); AST (SGOT) 47 U/L (17-59); Acetaminophen < 10 ug/ml (10-30); Albumin 4.9 g/dl (3.5-5.0); Alkaline Phosphatase 55 U/L (38-126); Blood Urea Nitrogen 11 mg/dl (9-20); Calcium 8.7 mg/dl (8.4-10.2); Carbon Dioxide 22 mmol/L (22-30); Chloride 109 mmol/L (98-107); Estimated Creatinine Clearance > 125 ml/min; Glucose 96 mg/dl (70-99); Potassium 4.3 mmol/L (3.5-5.1); Salicylate < 1.0 mg/dl (2.0-20.0); Sodium 142 mmol/L (135-145); Total Protein 7.0 g/dl (6.3-8.2); eGFR > 60.00
[2025-04-15 06:06] VITALS: BP 114/69
[2025-04-15 15:29] VITALS: BP 148/82
== END 2025-04-15 16:18 ==
LOC: EMR 20:43
PROVIDERS: Emergency Medicine; Physician Assistant; EMERGENCY PHYSICIAN Student in an Organized Health Care Education/Training Program
DX: F10.129 Alcohol abuse with intoxication, unspecified (principal); Y90.9 Presence of alcohol in blood, level not specified; J45.909 Unspecified asthma, uncomplicated; F32.A Depression, unspecified; F41.9 Anxiety disorder, unspecified; Z79.899 Other long term (current) drug therapy
CPT/HCPCS: 99285; 80053; 80143; 80179; 82077; 85025